=== PATIENT | male | born 1975 | race Caucasian/White ===

== ENCOUNTER 2016-08-07 21:09 | Observation (INO) ==
[2016-08-07 21:46] LABS: Basophils % 0.5 %; Eosinophils # 0.1 K/mcL (0.0-0.6); Eosinophils % 0.8 %; Hematocrit 53.6 % (37.5-50.1); Hemoglobin 18.1 g/dL (12.9-16.9); Immature Granulocytes % 0.2 % (0-4); Lymphocytes # 1.7 K/mcL (0.6-4.6); Lymphocytes % 26.5 %; Mean Corpuscular HGB Conc 33.8 g/dL (31.6-35.5); Mean Corpuscular Hemoglobin 28.4 pg (28.0-33.3); Mean Corpuscular Volume 84.1 fL (83.0-100.0); Mean Platelet Volume 9.6 fL (9.4-12.4); Monocytes # 0.4 K/mcL (0.0-1.3); Monocytes % 6.1 %; Neutrophils # 4.1 K/mcL (1.6-8.9); Platelet Count 260 K/mcL (140-400); Red Blood Count 6.37 M/mcL (4.19-5.50); Red Cell Distribution Width 13.6 % (11.5-14.5); Segmented Neutrophils % 65.9 %
[2016-08-07 21:51] LABS: INR 1.1; Prothrombin Time 12.2 Seconds (9.4-12.1)
[2016-08-07] MEDS ORDERED: GI Cocktail 40 ML EACH PO ONE (21:52)
[2016-08-07 21:54] LABS: Activated Partial Thrombo Time 35.4 Seconds (26.0-36.0)
--- NOTE | 2016-08-07 21:57 | Emergency Department Note ---
Disposition Clinical Impression: Chest pain Qualifiers: Chest pain type: unspecified Qualified Code(s): R07.9 - Chest pain, unspecified Disposition: Admitted As Inpatient Condition: Good Time of Disposition: 23:43 Chest Pain HPI - General Chief Complaint: ED Chest Pain Stated Complaint: Chest Pains Real Bad Time Seen by Provider: 08/07/16 21:46 Source: patient Mode of arrival: ambulatory Limitations: no limitations Vital Signs Reviewed: Yes Nursing Notes Reviewed: Yes - History of Present Illness HPI Narrative: 41-year-old male 41-year-old male presents with abrupt onset epigastric discomfort with associated shortness of breath that began while he was in his vehicle eating [employer] one hour prior to arrival. It was associated with nausea without vomiting. No radiation of symptoms. No lower abdominal pain. He has had similar symptoms in the past which prompted him to come to the emergency department where he had normal troponin testing. He has never had a stress test. He does have family history of late onset coronary artery disease, personal history of hypertension and tobacco abuse. Severity scale (1-10): 10 - Related Data Home Medications Medication Instructions Recorded Confirmed Diazepam [Valium] 10 mg PO DAILY 12/10/14 08/08/16 Testosterone Cypionate 200 mg IM QWEEK 12/10/14 08/08/16 [Depo-Testosterone] Hydrochlorothiazide 25 mg PO DAILY 02/16/15 08/08/16 Insulin Glargine [Lantus] 50 unit SQ HS 07/11/15 08/08/16 Esomeprazole Magnesium [Nexium] 20 mg PO HS 11/25/15 08/08/16 Divalproex Sodium [Depakote] 250 mg PO BID 08/08/16 08/08/16 Previous Rx's Medication Instructions Recorded Lisinopril 10 mg PO DAILY #30 tablet 10/29/15 Sucralfate [Carafate] 1 gm PO QIDAC #56 tablet 03/15/16 Allergies Allergy/AdvReac Type Severity Reaction Status Date / Time aspirin Allergy Hives Verified 08/07/16 21:11 diphenhydramine Allergy Hives Verified 08/07/16 21:11 [From Benadryl] latex Allergy Rash Verified 08/07/16 21:11 All systems ED: reviewed and negative except as stated. Chest Pain PMH - Past Medical History Medical history: Reports: asthma, diabetes, GERD, hyperlipidemia, hypertension, myocardial infarction, seizures, TIA, other Surgical history: Reports: cholecystectomy, vasectomy Psychiatric history: Reports: anxiety, depression, previous psychiatric hospitalization - Social History Smoking Status: Current every day smoker Alcohol use: Reports: none Drug use: Reports: none Physical Exam - Head Head exam: atraumatic, normocephalic, normal inspection - Eye Eye exam: Present: normal appearance, PERRL, EOMI - ENT ENT exam: normal exam, normal oropharynx, mucous membranes moist - Neck Neck exam: Present: normal inspection, full ROM, trachea midline - Chest Chest inspection: Present: normal inspection, symmetric chest wall rise. There is mild tenderness at the inferior aspect of the sternum. - Respiratory Respiratory exam: Clear to auscultation bilaterally without wheezes rales or rhonchi Cardiovascular Cardiovascular exam: Present: regular rate, normal rhythm, normal heart sounds - Abdominal Exam Patient's symptoms are reproducible with palpation at the epigastrium. He states that this is exactly the same symptoms that brought him in for evaluation. Otherwise, the abdomen is nontender. - Extremities Exam Extremities exam: Present: normal inspection, full ROM - Expanded Lower Extremity Exam Hip/Pelvis exam: Present: normal inspection, full ROM - Back Exam Back exam: Present: normal inspection, full ROM. Absent: tenderness, CVA tenderness (R), CVA tenderness (L) - Neurological Exam Neurological exam: Present: alert, oriented X3, CN II-XII intact - Psychiatric Psychiatric exam: Present: normal affect, normal mood - Skin Skin exam: Present: warm, dry, intact, normal color - General Limitations: no limitations General appearance: alert Course - Reevaluation(s) Reevaluation #1: Troponin is negative. Nonischemic EKG. No acute findings on chest x-ray. I offered the patient repeat troponin and home, he did not feel safe with this. He wanted to be admitted for his symptoms. Dr. Delacruz hr receptionist for hospitalist is agreeable to admission. Time: 23:43 Vital Signs Temperature 98.2 F 08/07/16 21:12 Pulse Rate 81 08/07/16 21:12 Respiratory Rate 20 08/07/16 21:12 Blood Pressure 145/99 08/07/16 21:12 O2 Sat by Pulse Oximetry 100 08/07/16 21:12 Temperature 98.0 F 08/08/16 00:43 Pulse Rate 70 08/08/16 00:43 Respiratory Rate 15 08/08/16 00:43 Blood Pressure 116/79 08/08/16 00:43 O2 Sat by Pulse Oximetry 95 08/08/16 00:43 Oxygen Delivery Oxygen Delivery Room Air Chest Pain - Lab Data Result diagrams: 08/07/16 21:39 08/07/16 21:39 Lab Results 08/07/16 08/07/16 08/07/16 Range/Units 21:39 21:39 21:39 WBC 6.2 (4.3-11.1) K/mcL RBC 6.37 H (4.19-5.50) M/mcL Hgb 18.1 H (12.9-16.9) g/dL Hct 53.6 H (37.5-50.1) % MCV 84.1 (83.0-100.0) fL MCH 28.4 (28.0-33.3) pg MCHC 33.8 (31.6-35.5) g/dL RDW 13.6 (11.5-14.5) % Plt Count 260 (140-400) K/mcL MPV 9.6 (9.4-12.4) fL Immature Gran % 0.2 (0-4) % Seg Neutrophils % 65.9 % Lymphocytes % 26.5 % Monocytes % 6.1 % Eosinophils % 0.8 % Basophils % 0.5 % Neutrophils # 4.1 (1.6-8.9) K/mcL Lymphocytes # 1.7 (0.6-4.6) K/mcL Monocytes # 0.4 (0.0-1.3) K/mcL Eosinophils # 0.1 (0.0-0.6) K/mcL Basophils # 0.0 (0.0-0.2) K/mcL PT 12.2 H (9.4-12.1) Seconds INR 1.1 APTT 35.4 (26.0-36.0) Seconds Sodium 140 (136-145) mEq/L Potassium 3.5 (3.5-4.5) mEq/L Chloride 103 (98-109) mEq/L Carbon Dioxide 27 (19-29) mEq/L BUN 7 L (8-26) mg/dL Creatinine 1.00 (0.72-1.25) mg/dL Est GFR ( Amer) > 60 (> 60) Est GFR (Non-Af Amer) > 60 (> 60) BUN/Creatinine Ratio 7 (6-26) Glucose 97 (70-99) mg/dL Calculated Osmolality 288 (280-300) Calcium 9.3 (8.6-10.8) mg/dL Total Bilirubin 1.3 H (0.2-1.2) mg/dL AST 21 (5-34) Units/L ALT 36 (0-55) Units/L Alkaline Phosphatase 54 (38-126) Units/L Troponin I (0-0.03) ng/mL Serum Total Protein 7.3 (6.0-8.3) g/dL Albumin 3.6 (3.5-5.0) g/dL Globulin 3.7 H (2.4-3.5) g/dL Albumin/Globulin Ratio 1.0 L (1.1-2.2) 08/07/16 Range/Units 21:39 WBC (4.3-11.1) K/mcL RBC (4.19-5.50) M/mcL Hgb (12.9-16.9) g/dL Hct (37.5-50.1) % MCV (83.0-100.0) fL MCH (28.0-33.3) pg MCHC (31.6-35.5) g/dL RDW (11.5-14.5) % Plt Count (140-400) K/mcL MPV (9.4-12.4) fL Immature Gran % (0-4) % Seg Neutrophils % % Lymphocytes % % Monocytes % % Eosinophils % % Basophils % % Neutrophils # (1.6-8.9) K/mcL Lymphocytes # (0.6-4.6) K/mcL Monocytes # (0.0-1.3) K/mcL Eosinophils # (0.0-0.6) K/mcL Basophils # (0.0-0.2) K/mcL PT (9.4-12.1) Seconds INR APTT (26.0-36.0) Seconds Sodium (136-145) mEq/L Potassium (3.5-4.5) mEq/L Chloride (98-109) mEq/L Carbon Dioxide (19-29) mEq/L BUN (8-26) mg/dL Creatinine (0.72-1.25) mg/dL Est GFR ( Amer) (> 60) Est GFR (Non-Af Amer) (> 60) BUN/Creatinine Ratio (6-26) Glucose (70-99) mg/dL Calculated Osmolality (280-300) Calcium (8.6-10.8) mg/dL Total Bilirubin (0.2-1.2) mg/dL AST (5-34) Units/L ALT (0-55) Units/L Alkaline Phosphatase (38-126) Units/L Troponin I 0.02 (0-0.03) ng/mL Serum Total Protein (6.0-8.3) g/dL Albumin (3.5-5.0) g/dL Globulin (2.4-3.5) g/dL Albumin/Globulin Ratio (1.1-2.2) - EKG Data EKG results narrative: Normal sinus rhythm at 75 with left axis deviation. No ST elevation or depression. No pathologic Q waves. No ischemic change when compared with 07/04. Attestation Statement - Attestation Attestation: I, Oliverio Guan, examined this patient and my medical decision-making was reviewed with the PMO ANALYST/PA/Advanced Practice Nurse/Resident Physician. I agree with the documented findings, disposition and treatment plan as described except to the extent set forth below. 61-year-old male presents with concerns of chest pain. Patient states his pain started while eating [employer] in his car. He became very short of breath and diaphoretic and had open a window to help himself calm down. Patient states the pain is a pressure in the center of his chest that radiates down his right arm. He does not feels heart racing. No history of cardiac disease per the patient however there is a family history of cardiac disease in multiple family members. Patient is treated for hypertension, hyperlipidemia, diabetes, is a tobacco abuser. Patient had an initial negative troponin and an EKG which showed normal sinus rhythm with a rate of 75 without evidence of STEMI. Patient 's pain did not improve after a GI cocktail. Patient did not feel comfortable to return home he will be admitted to the hospital for further evaluation of chest pain to rule out ACS.
[2016-08-07 22:18] LABS: Alanine Aminotransferase 36 Units/L (0-55); Albumin 3.6 g/dL (3.5-5.0); Alkaline Phosphatase 54 Units/L (38-126); Aspartate Amino Transferase 21 Units/L (5-34); BUN/Creatinine Ratio 7 (6-26); Bilirubin,Total 1.3 mg/dL (0.2-1.2); Blood Urea Nitrogen 7 mg/dL (8-26); Calcium 9.3 mg/dL (8.6-10.8); Carbon Dioxide 27 mEq/L (19-29); Chloride 103 mEq/L (98-109); Globulin 3.7 g/dL (2.4-3.5); Glucose 97 mg/dL (70-99); Osmolality,Calculated 288 (280-300); Potassium 3.5 mEq/L (3.5-4.5); Sodium 140 mEq/L (136-145); Total Protein 7.3 g/dL (6.0-8.3); eGFR For African Americans > 60 (> 60); eGFR For Non-African Americans > 60 (> 60)
[2016-08-07] MEDS ORDERED: Aspirin 81 MG TAB.CHEW PO ONE (22:48)
[2016-08-07] MEDS: Nitroglycerin 0.4 MG TAB.SUBL SL STA ×2 (23:26→23:30)
[2016-08-08] MEDS ORDERED: Nitroglycerin 0.4 MG TAB.SUBL SL PRN (01:00)
[2016-08-08] MEDS ORDERED: Naloxone 0.4 MG/ML INJ IVP PRN (01:03)
[2016-08-08] MEDS ORDERED: Acetaminophen 325 MG TABLET PO PRN (01:03)
[2016-08-08] MEDS ORDERED: *HR* Morphine 2 MG/ML SYRINGE IVP PRN (01:03)
[2016-08-08] MEDS ORDERED: 0.9 % Sodium Chloride 1,000 ML IVC SCH (01:15)
[2016-08-08] MEDS ORDERED: Dextrose Gel 15 GM PO PRN ×2 (02:17)
[2016-08-08] MEDS ORDERED: D5% in Water 1,000 ML IVC PRN (02:17)
[2016-08-08] MEDS ORDERED: *HR* Dextrose 50 % in Water (Syg) 50 ML SYRINGE IVP PRN (02:17)
--- NOTE | 2016-08-08 02:32 | Internal Med History&Physical ---
Date of Encounter: 08/08/16 Time of Encounter: 01:00 Assessment and Plan (1) Chest pain Current visit: Yes Status: Acute Patient has chest pain, responded to nitroglycerin, radiated to right arm, with shortness of breath, nausea and diaphoresis. - Etiology is and determined. - Need to rule out ACS. - We will check 3 sets of troponin. EKG reviewed, unremarkable. - We will keep on continuous cardiac monitoring. - We will give symptomatic treatment. - Chest x-ray unremarkable. - We will check d-dimer, however, patient has no desaturation or tachycardia, PE is less likely. - We will check echocardiogram. - Not place a stress test because patient has frequent chest pain right now. - We will treat patient with Plavix (allergy to aspirin), beta zurdo, atorvastatin, and isosorbide mononitrate at this point unless CAD is ruled out. Qualifiers: Chest pain type: precordial pain Qualified Code(s): R07.2 - Precordial pain (2) Diabetes Current visit: Yes Status: Acute Continue basal and sliding scale insulin. 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 exterminator helper insulin use: with termite exterminator helper use Qualified Code(s): E11.9 - Type 2 diabetes mellitus without complications ; Z79.4 - longterm (current) use of insulin (3) Hypertension Current visit: Yes Status: Acute Continue home medications Qualifiers: Hypertension type: essential hypertension Qualified Code(s): I10 - Essential (primary) hypertension (4) Klinefelter syndrome Current visit: Yes Status: Acute (5) DVT prophylaxis Current visit: Yes Status: Acute [facility] Internal Medicine - H&P: HPI Chief complaint: Chest pain Admitted From: Home Plans for Post Hospital Care: Home History of present illness: Mr. Mills is a 41 year old male with history of diabetes, hypertension, Kleinfelter's syndrome, present to ER for chest pain. Patient said the pain started suddenly at 8:30 PM, sharp and pressure-like, radiates to his right arm. At the same time, patient has shortness of breath, nausea, but no vomiting. He also complained of diaphoresis when he has a pain. The chest pain lasted about 30 minutes and improved after treatment in ER (he was given nitroglycerin in the emergency room). However, patient has several similar episode of pain, relieved by sublingual nitroglycerin. Patient denies fever, cough, sore throat, leg pain or swelling, recent travel. He also complained abdominal pain with diarrhea for 3 days. He has no recent hospitalization or antibiotic use. I discussed CODE STATUS with him. He is a full code. Past Med Surg Social Fam HX - Past Medical History Medical history: asthma, diabetes, GERD, hyperlipidemia, hypertension, myocardial infarction, seizures, TIA, other Psychiatric history: anxiety, depression, previous psychiatric hospitalization - Past Surgical History Surgical History: cholecystectomy, vasectomy - Social History Smoking Status: Current every day smoker Packs per day: 2 Smokeless Tobacco Status: No Alcohol use: none Drug use: none - Family History Father Living Status: Age at : 68 Cause of : [place] Hx Family Cardiac Disorders: Yes Mother Living Status: Hx Family Cardiac Disorders: Yes (pacemaker) Internal Medicine - H&P: Meds RX: Diazepam [Valium] 10 mg PO DAILY 12/10/14 [History] RX: Testosterone Cypionate [Depo-Testosterone] 200 mg IM QWEEK 12/10/14 [History ] RX: Hydrochlorothiazide 25 mg PO DAILY 02/16/15 [History] RX: Insulin Glargine [Lantus] 50 unit SQ HS 07/11/15 [History] RX: Lisinopril 10 mg PO DAILY #30 tablet 10/29/15 [Rx] Esomeprazole Magnesium [Nexium] 20 mg PO HS 11/25/15 [History] Sucralfate [Carafate] 1 gm PO QIDAC #56 tablet 03/15/16 [Rx] Divalproex Sodium [Depakote] 250 mg PO BID 08/08/16 [History] Allergies aspirin Allergy (Verified 08/07/16 21:11) Hives diphenhydramine [From Benadryl] Allergy (Verified 08/07/16 21:11) Hives latex Allergy (Verified 08/07/16 21:11) Rash All Systems PM: A 10-system review of systems was performed and is negative for pertinent findings except as documented above in the HPI. - Constitutional Vitals: Temp Pulse Resp BP Pulse Ox 98.0 F 66 15 101/59 95 08/08/16 00:43 08/08/16 02:11 08/08/16 00:43 08/08/16 02:11 08/08/16 00:43 General appearance: Present: A&O X 3, no acute distress, answers questions appropriately - Head Head exam: Present: atraumatic, normocephalic - Eye Eye exam: Present: PERRL, conjuntiva pink, sclera anicteric Pupils: Present: PERRL - Neck Neck exam general surgery: Present: supple, trachea midline. Absent: lymphadenopathy - Respiratory Respiratory exam: Present: chest wall tenderness, CTAB. Absent: accessory muscle use, rales, rhonchi, wheezes - Cardiovascular Cardiovascular exam: Present: RRR, +S1, +S2. Absent: diastolic murmur, gallop, rubs, systolic murmur - GI/Abdominal GI/Abdominal exam: Present: normal bowel sounds, soft, no peritoneal signs. Absent: distended, tenderness - Extremities Exam Extremities exam: Present: warm, radial pulses palpable and symetrical. Absent : calf tenderness, cyanotic, pedal edema - Neurological Exam Neurological exam: Present: CN II-XII intact, oriented X3, no focal deficits. Absent: pronater drift, facial droop, speech deficit - Skin Skin exam: Present: dry, intact Internal Med - H&P Results - Labs CBC & Chem 7: 08/07/16 21:39 08/07/16 21:39 - EKG Data -: EKG Interpreted by Myself EKG shows normal: sinus rhythm Rate: normal - Impressions ITS Impressions Abdomen/Pelvis CT 08/08/16 01:01 IMPRESSION: 1. No acute findings within the abdomen or pelvis. 2. No nephrolithiasis or hydronephrosis. 3. Normal appendix. D/ / Shahzad Garcia MD / Shahzad Garcia MD Interpreting Provider: Shahzad Garcia MD
[2016-08-08 05:19] LABS: Basophils % 0.3 %; Eosinophils # 0.1 K/mcL (0.0-0.6); Eosinophils % 0.8 %; Hematocrit 53.1 % (37.5-50.1); Hemoglobin 17.6 g/dL (12.9-16.9); Immature Granulocytes % 0.8 % (0-4); Lymphocytes # 1.9 K/mcL (0.6-4.6); Mean Corpuscular HGB Conc 33.1 g/dL (31.6-35.5); Mean Corpuscular Hemoglobin 28.1 pg (28.0-33.3); Mean Corpuscular Volume 84.8 fL (83.0-100.0); Mean Platelet Volume 9.7 fL (9.4-12.4); Monocytes # 0.5 K/mcL (0.0-1.3); Monocytes % 6.2 %; Neutrophils # 4.8 K/mcL (1.6-8.9); Platelet Count 233 K/mcL (140-400); Red Blood Count 6.26 M/mcL (4.19-5.50); Red Cell Distribution Width 13.4 % (11.5-14.5); Segmented Neutrophils % 65.9 %
[2016-08-08 05:33] LABS: BUN/Creatinine Ratio 8 (6-26); Blood Urea Nitrogen 7 mg/dL (8-26); Calcium 8.8 mg/dL (8.6-10.8); Carbon Dioxide 27 mEq/L (19-29); Chloride 104 mEq/L (98-109); Chol/HDL Ratio 5.5 (0-4.9); Cholesterol 115 mg/dL (< 200); Glucose 86 mg/dL (70-99); HDL Cholesterol 21 mg/dL (40-59); LDL Cholesterol,Calculated 69 mg/dL (0-99); Magnesium 1.8 mg/dL (1.6-2.6); Osmolality,Calculated 285 (280-300); Phosphorous 3.1 mg/dL (2.3-4.7); Potassium 3.2 mEq/L (3.5-4.5); Sodium 139 mEq/L (136-145); Triglycerides 126 mg/dL (< 150); eGFR For African Americans > 60 (> 60); eGFR For Non-African Americans > 60 (> 60)
[2016-08-08] MEDS ORDERED: *HR* Enoxaparin 40 MG/0.4 ML SYRINGE SQ SCH (06:00)
[2016-08-08] MEDS ORDERED: diazePAM 10 MG TABLET PO SCH (09:00)
[2016-08-08] MEDS ORDERED: Isosorbide MONOnitrate (24 HR) 30 MG TAB.ER.24H PO SCH (09:00)
[2016-08-08] MEDS ORDERED: hydroCHLOROthiazide 25 MG TABLET PO SCH (09:00)
[2016-08-08] MEDS ORDERED: Divalproex (12 HR) 250 MG TABLET PO SCH (09:00)
--- NOTE | 2016-08-08 09:44 | ECHO - Doppler Report ---
Echocardiogram Name: Can Mills Date of Study: 08/08/2016 Date: 1975 Ht: 74.0 in Medical Record#: [id number] Age: 41 Wt: 190.0 lb Gender: Male BSA: 2.13 Order #: [id number] Location: [facility] Room #: [id number] Reading Physician: Jose Dang MD, [facility] Networking Technician: Keshawn Vann [facility] Ordering Physician: Christen Delacruz MD Primary Physician: Khurram Pace DO Indications: Chest pain Impressions: Normal LV systolic function, LVEF 55-60%. Mild concentric left ventricular hypertrophy. Normal right ventricular size and function. No significant valvular dysfunction. No evidence of pulmonary hypertension. Left Ventricular Wall Motion: Rest Echo Findings All wall segments showed normal motion. Findings: Study Quality * Technically adequate exam. ECG Findings * Sinus bradycardia. Left Ventricle * Normal LV systolic function, LVEF 55-60%. * Normal LV chamber size. * Mild concentric left ventricular hypertrophy. * Normal left ventricular diastolic function. Right Ventricle * Normal right ventricular size and function. Left Atrium * Normal left atrial size. Right Atrium * Normal right atrial size. Aorta * Normally sized aortic root. Pericardium * There is no pericardial effusion present. IVC * Normal IVC dimensions and inspiratory collapse. Mitral Valve * Normal mitral valve structure. * No mitral stenosis. * Trace mitral regurgitation. Tricuspid Valve * Normal tricuspid valve structure. * No tricuspid stenosis. * Trace tricuspid regurgitation. * No evidence of pulmonary hypertension. Pulmonic Valve * Normal pulmonic valve structure. * No pulmonic stenosis. * Trace pulmonic regurgitation. Aortic Valve * Trileaflet aortic valve. * No aortic stenosis. * No aortic regurgitation. History Hypertension Diabetes Hypercholesteremia History of Smoking Years 23 Packs 2 Family History of CAD 11/13/13 a Previous Echo was performed. Measurements: BP: 109/ 70 2D Normal Values RVIDd: 3.04 cm IVSd: 1.30 cm 0.6 - 1.0 cm LVIDd: 4.78 cm 3.7 - 5.6 cm LVPWd: 1.20 cm 0.6 - 1.1 cm LVIDs: 3.12 cm 1.5 - 3.6 cm AO: 3.50 cm < 4.0 cm %FS: 34.70 cm >25 % LA volume: 60 Mitral Valve Peak E:.54 m/sec Peak A:.39 m/sec E/A Ratio:1.4 Tricuspid Valve TV Regurg Peak Grad: 21.00mmHg TV Regurg Peak Ruslan: 2.28m/sec Updated by Jose Dang MD, [facility] on 08/08/2016 9:38:41 AM electronically signed on 08/08/2016 9:39:14 AM with status of Final Wall Motion Arce: 1=Normal, 2=Hypokinesis, 3=Akinesis, 4=Dyskinesis, 5=Aneurysmal, 6=Hyperkinetic, X=Not Visualized (Blank)=Missing
[2016-08-08] MEDS ORDERED: Regadenoson 0.4 MG/5 ML SYRINGE IVP ONE (11:16)
[2016-08-08] MEDS: Sucralfate 1 GM TABLET PO SCH ×3 (11:19→17:34)
[2016-08-08] MEDS: Insulin LISPRO 300 UNITS/3 ML VIAL SQ SCH ×3 (11:32→17:36)
--- NOTE | 2016-08-08 13:58 | Nuclear Medicine Stress Report ---
Regadenoson Nuclear Stress Name: Can Mills Date of Study: 08/08/2016 Date: 1975 Ht: 74.0 in Medical Record#: [id number] Age: 41 Wt: 190.0 lb Gender: Male Order #: [id number] Location: [facility] IP Room: [facility] Supervising Provider: Yolanda Hills CNP Reading Physician: Jose Dang MD, [facility] Ordering Physician: Carrie Hansen CNP Primary Care Physician: Khurram Pace DO Stress Technologist: Nelson Dial CRT [place] Packer: Fernando Menjivar Indications: Chest Pain Impression: No significant ECG changes with regadenoson. Gated LVEF = 64%. Perfusion imaging was negative for ischemia or infarct. History: Hypertension Diabetes Hypercholesteremia History of Smoking Stress Test Summary: Stress Test Type: Pharmacologic Regadenoson 0.4mg/5ml given IV Baseline Information: Initial Heart Rate: 71 Blood Pressure: 112/72 Stress Information: Test Terminated Due to (primary): As per protocol Maximum Blood Pressure: 114/74 Maximum Heart Rate: 108 Percent Maximum Heart Rate Achieved: 60 Double Product: [id number] Symptoms: No chest symptoms Nuclear Summary: SPECT myocardial perfusion imaging using Tc99m Sestamibi given intravenously was performed at rest and following cardiac stress testing. The resting images were obtained following initial dose of 10.3 mCi. Following stress an additional dose of 34.1 mCi was given at peak exercise or 30 seconds post regadenoson infusion. Findings: Stress Note * Resting ECG demonstrated normal sinus rhythm. * No baseline arrhythmias were noted. * Patient had no chest pain during stress. * No arrhythmias were noted during stress. * No significant ECG changes with regadenoson. Hemodynamic responses * Normal hemodynamic responses to pharmacologic stress. Study Quality * Study quality is average. Gated EF % * Gated LVEF = 64%. Left Ventricle * The left ventricle is not dilated. * Normal Segmental Perfusion in rest. * Normal segmental perfusion in stress. * Inferior artifact noted. TID * No evidence of transient ischemic dilatation. Updated by Jose Dang MD, [facility] on 08/08/2016 1:52:33 PM electronically signed on 08/08/2016 1:52:54 PM with status of Final
[2016-08-08 15:55] VITALS: BP 94/53
--- NOTE | 2016-08-08 16:29 | Discharge Summary ---
Date of Encounter: 08/08/16 Time of Encounter: 16:00 - Discharge Diagnosis (1) Chest pain Priority: Primary Status: Acute Comments: Patient reports sudden onset epigastric pain and shortness of breath. He Was he was eating [employer]. He did have nausea no vomiting. No radiation. No abdominal pain and diarrhea. He has had this before and he came to the emergency department. Patient is a smoker and is not interested in smoking cessation materials at this time. Epigastric area slightly tender to palpation. He had a stress test today that showed no significant EKG changes with the medication, gated LVEF 64%, perfusion imaging was negative for ischemia or infarct. Echocardiogram today shows normal systolic function, EF 55-60%, mild left ventricular hypertrophy, no significant valvular dysfunction and no evidence of pulmonary hypertension. Troponins were negative 2. Patient denies chest pain at this time. He has no shortness of breath. Patient sees Dr. Pace at the resident clinic for follow-up. This is most likely reflux symptoms, will start Carafate TID with meals. 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 He works 5 days in a row. He can straight home from work and sleeps for an hour or 2 and is unable to continue sleeping. He says he does take a prescription sleep aid, however, it has not been helping him lately. His father's at bedside and says that he has been getting up and driving to [place] every single day to see his son who is in the hospital. Patient will be given 2 days off work and agrees to go home and try to rest and follow-up with resident clinic. Qualifiers: Insomnia type: other insomnia Qualified Code(s): G47.09 - Other insomnia (3) Diabetes Priority: Secondary Status: Acute Comments: Last A1c was 4.7 in December,. Patient does not take medication at home. Continue lifestyle modifications. Qualifiers: Diabetes mellitus type: type 2 Diabetes mellitus complication status: without complication Diabetes mellitus termination clerk insulin use: with penitentiary use Qualified Code(s): E11.9 - Type 2 diabetes mellitus without complications ; Z79.4 - long-term (current) use of insulin (4) Hypertension Priority: Secondary Status: Chronic Comments: Chronic. Continue medications. Qualifiers: Hypertension type: essential hypertension Qualified Code(s): I10 - Essential (primary) hypertension (5) Klinefelter syndrome Priority: Secondary Status: Chronic (6) DVT prophylaxis Priority: Secondary Status: Acute Comments: Up ad selin - Discharge Medications Prescriptions: Sucralfate [Carafate] 1 gm PO TIDAC #120 tablet Home Medications: Diazepam [Valium] 10 mg PO DAILY 12/10/14 [History] Testosterone Cypionate [Depo-Testosterone] 200 mg IM Q2W 12/10/14 [History] Hydrochlorothiazide 25 mg PO DAILY 02/16/15 [History] Esomeprazole Magnesium [Nexium] 20 mg PO HS 11/25/15 [History] Atorvastatin [Lipitor] 40 mg PO HS 08/08/16 [History] CloNIDine HCl 0.1 mg PO DAILY 08/08/16 [History] Divalproex Sodium [Depakote] 250 mg PO BID 08/08/16 [History] Ibuprofen [Motrin] 800 mg PO Q8HR PRN 08/08/16 [History] Lisinopril [Zestril] 20 mg PO BID 08/08/16 [History] Metoprolol XL (24 HR) Succ [Toprol Xl] 50 mg PO DAILY 08/08/16 [History] Nystatin Cream [Mycostatin Cream] 1 appl TP BID 08/08/16 [History] Sucralfate [Carafate] 1 gm PO TIDAC #120 tablet 08/08/16 [Rx] Tobramycin 1 drop RIGHT EYE DAILY 08/08/16 [History] TraZODone 50 mg PO HS 08/08/16 [History] Allergies/Adverse Reactions: Allergies aspirin Allergy (Verified 08/07/16 21:11) Hives diphenhydramine [From Benadryl] Allergy (Verified 08/07/16 21:11) Hives latex Allergy (Verified 08/07/16 21:11) Rash Procedures/tests Complete & Pending: Procedures Performed prior 72 hours Category Date Time Status CT abd pelvis wo no iv no oral [CT] Stat Cat Scan 08/08/16 01:01 Completed NM gonzalo perf SPECT multi [NM] Routine Exams 08/08/16 08:16 Taken ECG 12 lead ECG [ECG] AM 0600 Y 08/08/16 06:00 Completed EV echocardiogram Routine Y 08/08/16 02:21 Completed SP pharm nuclear stress Routine Y 08/08/16 08:12 Completed Date of admission: 08/07/16 23:53 Primary care physician: Khurram Green Discharging clinician: Hazel Shukla Anticipated date of discharge: 08/08/16 - Patient Status Disposition: Home, Self-Care Functional capacity at discharge: independent ambulation Overall status at discharge: patient is back to baseline - Discharge Instructions Follow Up With: Khurram Pace, [Primary Care Provider] - Additional Instructions: May return to work on 08/09 Return to the ER as needed for any other problems or concerns or if your pain returns. Start Carafate tonight before you eat dinner. Follow up with Dr. Pace in the next week to 10 days for follow up appointment. - Diet and Activity Activity: increase activity as tolerated Diet: diabetic diet, low fat, low cholesterol Interval History: Patient reports sudden onset epigastric pain with nausea last night while eating [employer] in his car prior to going to work. He came to the emergency department for evaluation. He has had these symptoms before and had a negative negative cardiac workup at that time. Epigastric area slightly tender to palpation. He denies chest pain and denies nausea at this time. He also denies shortness of breath, diaphoresis, vomiting, or radiation of pain. This is most likely epigastric in nature, GERD symptoms. He will be started on Carafate 3 times a day with meals and will continue his other home medications. He will follow-up with Dr. Pace at the outpatient resident clinic Patient stress test today. No significant EKG changes with medication, gated LVEF 64%, perfusion imaging was negative for ischemia or infarct. Patient also had echocardiogram that showed normal systolic function, LVEF 25-60 %, mild LV hypertrophy. Normal RV size and function, no significant valvular dysfunction, no evidence of pulmonary hypertension. Troponins were negative 3. EKG was normal sinus with no ischemic changes. He has a strong family history of late onset coronary artery disease and [place]. He has multiple risk factors including diabetes smoking hypertension and obesity. Chest x-ray was negative. He also had a negative abdomen CT. No acute findings within the abdomen or pelvis, no nephrolithiasis or hydronephrosis, and normal appendix. 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 He does not work at 10 PM and gets off at 6:45 AM. He works 5 days a week. He says that he goes home and is in bed by about 7:10 AM. He says that he only sleeps for about an hour to and is up. He does take trazodone 50 mg. It is prescribed by his psychiatrist at [facility]. Patient will be given 2 days off work. I did offer to give him more and he says that he needs to go to work. Labs are within normal limits. Vital signs are within normal limits. Patient denies pain. He is stable and appropriate for discharge. Patient uses a nicotine vaporizer. He says he is not ready to have any smoking cessation information at this time. Hospital course: Mr. Mills is a 41 year old male Time spent discussing smoking cessation with patient: 3 to 10 minutes - Time Spent with Patient Total time spent providing and/or coordinating discharge services: Less than 30 minutes - Constitutional Vitals: Temp Pulse Resp BP Pulse Ox 98.3 F 55 16 94/53 95 08/08/16 15:33 08/08/16 15:33 08/08/16 15:33 08/08/16 15:33 08/08/16 15:33 General appearance: Present: A&O X 3, pleasant, no acute distress, answers questions appropriately - Head Head exam: Present: normal inspection - Eye Eye exam: Present: normal appearance, conjuntiva pink - ENT ENT exam: Present: mucous membranes moist, normal exam - Neck Neck exam general surgery: Present: normal inspection. Absent: lymphadenopathy , tenderness - Respiratory Respiratory exam: Present: CTAB. Absent: rales, rhonchi, stridor, wheezes - Cardiovascular Cardiovascular exam: Present: RRR, +S1, +S2. Absent: diastolic murmur, systolic murmur - GI/Abdominal GI/Abdominal exam: Present: normal bowel sounds, soft, tenderness. Absent: distended, firm, mass - Extremities Exam Extremities exam: Present: normal inspection, warm, radial pulses palpable and symetrical. Absent: pedal edema, tenderness - Neurological Exam Neurological exam: Present: alert, oriented X3, no focal deficits, strengths equal and symetr throughout. Absent: facial droop, speech deficit
--- NOTE | 2016-08-08 16:59 | Electrocardiograph Report ---
[place] [address] Test Date: 2016-08-07 Pat Name: Can Mills Department: 103 Room: 3B39 Gender: M Cath Lab: VU : 1975 Requested By: Oliverio Guan Order Number: [id number] Reading MD: Bri Arias Measurements Intervals [place] Rate: 75 P: 21 NV: 144 QRS: -7 QRSD: 98 T: 66 QT: 352 QTc: 381 Interpretive Statements SINUS RHYTHM MODERATE VOLTAGE CRITERIA FOR LVH, CONSIDER NORMAL VARIANT NONSPECIFIC T-WAVE ABNORMALITY Electronically Signed On 08-08-2016 16:57:18 EDT by Bri Arias
--- NOTE | 2016-08-08 17:07 | Electrocardiograph Report ---
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
[2016-08-08] MEDS ORDERED: Insulin DETEMIR 100 UNIT/ML X5UNITS SQ SCH ×2 (21:00)
[2016-08-08] MEDS ORDERED: Insulin LISPRO 300 UNITS/3 ML VIAL SQ SCH (21:00)
== END 2016-08-08 18:11 | disposition home or self-care (01) ==
LOC: 3BNU 21:09 → EMEROO 21:09 → 3BNU 08-08 00:18
PROVIDERS: ADMIT Internal Medicine; ATTEND Nurse Practitioner Family

== ENCOUNTER 2017-01-12 16:44 | Observation (INO) ==
[2017-01-12 17:55] LABS: Basophils % 0.6 %; Eosinophils # 0.1 K/mcL (0.0-0.6); Hemoglobin 18.2 g/dL (12.9-16.9); Immature Granulocytes % 0.1 % (0-4); Lymphocytes # 1.9 K/mcL (0.6-4.6); Lymphocytes % 26.7 %; Mean Corpuscular Hemoglobin 29.2 pg (28.0-33.3); Mean Corpuscular Volume 88.5 fL (83.0-100.0); Monocytes # 0.4 K/mcL (0.0-1.3); Monocytes % 5.4 %; Neutrophils # 4.6 K/mcL (1.6-8.9); Platelet Count 266 K/mcL (140-400); Red Blood Count 6.24 M/mcL (4.19-5.50); Red Cell Distribution Width 13.6 % (11.5-14.5); Segmented Neutrophils % 66.2 %
[2017-01-12 17:56] LABS: Hematocrit 55.2 % (37.5-50.1)
[2017-01-12 18:08] LABS: BUN/Creatinine Ratio 6 (6-26); Blood Urea Nitrogen 6 mg/dL (8-26); Calcium 9.7 mg/dL (8.6-10.8); Carbon Dioxide 25 mEq/L (19-29); Chloride 104 mEq/L (98-109); Glucose 83 mg/dL (70-99); Osmolality,Calculated 285 (280-300); Potassium 4.1 mEq/L (3.5-4.5); Sodium 139 mEq/L (136-145); eGFR For African Americans > 60 (> 60); eGFR For Non-African Americans > 60 (> 60)
--- NOTE | 2017-01-12 19:00 | Emergency Department Note ---
Disposition Clinical Impression: Chest pain Disposition: Admitted As Inpatient Condition: Good General Adult HPI - General Chief complaint: ED Chest Pain Stated complaint: chest pain, cold sweat Time Seen by Provider: 01/12/17 18:58 Source: patient Limitations: no limitations - History of Present Illness Pain Scale: 10 - Related Data Home Medications Medication Instructions Recorded Confirmed Diazepam [Valium] 10 mg PO DAILY 12/10/14 01/12/17 Testosterone Cypionate 200 mg IM QWEEK 12/10/14 01/12/17 [Depo-Testosterone] Atorvastatin [Lipitor] 40 mg PO HS 08/08/16 01/12/17 traZODone [TraZODone] 50 mg PO HS 08/08/16 01/12/17 Sertraline [Zoloft] 100 mg PO DAILY 10/01/16 01/12/17 Previous Rx's Medication Instructions Recorded Hydrochlorothiazide [Microzide] 12.5 mg PO DAILY #10 capsule 09/08/16 Lisinopril [Zestril] 20 mg PO DAILY #10 tablet 09/08/16 Divalproex Sodium [Depakote] 250 mg PO BID #14 tablet.dr 11/20/16 Metoprolol XL (24 HR) Succ [Toprol 50 mg PO DAILY #7 tab.er.24h 11/20/16 Xl] Allergies Allergy/AdvReac Type Severity Reaction Status Date / Time diphenhydramine Allergy Hives Verified 09/07/16 22:53 [From Benadryl] latex Allergy Rash Verified 09/07/16 22:53 Past Medical History - Past Medical History Medical history: Reports: asthma, diabetes, GERD, hyperlipidemia, hypertension, myocardial infarction, seizures, TIA, other Surgical history: Reports: cholecystectomy, vasectomy Psychiatric history: Reports: anxiety, depression, previous psychiatric hospitalization - Social History Smoking Status: Current every day smoker Smokeless Tobacco Status: No Alcohol use: Reports: none Drug use: Reports: none Physical Exam - General Limitations: no limitations General appearance: alert, in no apparent distress Course Vital Signs Temperature 98.2 F 01/12/17 17:07 Pulse Rate 83 01/12/17 17:07 Respiratory Rate 18 01/12/17 17:07 Blood Pressure 152/109 01/12/17 17:07 O2 Sat by Pulse Oximetry 97 01/12/17 17:07 Temperature 97.6 F 01/13/17 07:04 Pulse Rate 68 01/13/17 07:04 Respiratory Rate 20 01/13/17 07:04 Blood Pressure 125/81 01/13/17 07:04 O2 Sat by Pulse Oximetry 96 01/13/17 07:04 Oxygen Delivery Oxygen Delivery Room Air Medical Decision Making - Lab Data Result diagrams: 01/13/17 03:24 01/13/17 03:24 Lab Results 01/12/17 01/12/17 01/12/17 Range/Units 17:45 17:45 17:45 WBC 7.0 (4.3-11.1) K/mcL RBC 6.24 H (4.19-5.50) M/mcL Hgb 18.2 H (12.9-16.9) g/dL Hct 55.2 H (37.5-50.1) % MCV 88.5 (83.0-100.0) fL MCH 29.2 (28.0-33.3) pg MCHC 33.0 (31.6-35.5) g/dL RDW 13.6 (11.5-14.5) % Plt Count 266 (140-400) K/mcL MPV 9.0 L (9.4-12.4) fL Immature Gran % 0.1 (0-4) % Seg Neutrophils % 66.2 % Lymphocytes % 26.7 % Monocytes % 5.4 % Eosinophils % 1.0 % Basophils % 0.6 % Neutrophils # 4.6 (1.6-8.9) K/mcL Lymphocytes # 1.9 (0.6-4.6) K/mcL Monocytes # 0.4 (0.0-1.3) K/mcL Eosinophils # 0.1 (0.0-0.6) K/mcL Basophils # 0.0 (0.0-0.2) K/mcL PT (9.4-12.1) Seconds INR APTT (26.0-36.0) Seconds Sodium 139 (136-145) mEq/L Potassium 4.1 (3.5-4.5) mEq/L Chloride 104 (98-109) mEq/L Carbon Dioxide 25 (19-29) mEq/L BUN 6 L (8-26) mg/dL Creatinine 1.03 (0.72-1.25) mg/dL Est GFR ( Amer) > 60 (> 60) Est GFR (Non-Af Amer) > 60 (> 60) BUN/Creatinine Ratio 6 (6-26) Glucose 83 (70-99) mg/dL Calculated Osmolality 285 (280-300) Calcium 9.7 (8.6-10.8) mg/dL Troponin I 0.00 (0-0.03) ng/mL 01/12/17 Range/Units 18:41 WBC (4.3-11.1) K/mcL RBC (4.19-5.50) M/mcL Hgb (12.9-16.9) g/dL Hct (37.5-50.1) % MCV (83.0-100.0) fL MCH (28.0-33.3) pg MCHC (31.6-35.5) g/dL RDW (11.5-14.5) % Plt Count (140-400) K/mcL MPV (9.4-12.4) fL Immature Gran % (0-4) % Seg Neutrophils % % Lymphocytes % % Monocytes % % Eosinophils % % Basophils % % Neutrophils # (1.6-8.9) K/mcL Lymphocytes # (0.6-4.6) K/mcL Monocytes # (0.0-1.3) K/mcL Eosinophils # (0.0-0.6) K/mcL Basophils # (0.0-0.2) K/mcL PT 10.9 (9.4-12.1) Seconds INR 1.0 APTT 31.7 (26.0-36.0) Seconds Sodium (136-145) mEq/L Potassium (3.5-4.5) mEq/L Chloride (98-109) mEq/L Carbon Dioxide (19-29) mEq/L BUN (8-26) mg/dL Creatinine (0.72-1.25) mg/dL Est GFR ( Amer) (> 60) Est GFR (Non-Af Amer) (> 60) BUN/Creatinine Ratio (6-26) Glucose (70-99) mg/dL Calculated Osmolality (280-300) Calcium (8.6-10.8) mg/dL Troponin I (0-0.03) ng/mL Attestation Statement - Attestation Attestation: I examined this patient and my medical decision-making was reviewed with the Resident Physician. I agree with the documented findings, disposition and treatment plan as described except to the extent set forth below. Face to face time provided in conjunction with the resident physician Dr. Parikh Patient complains of hot sweats and cold chills, CP. H/o tobacco use, HTN, DM. He appears in no acute distress on exam. EKG reviewed by me. Labs ordered by triage reviewed by me
[2017-01-12 19:07] LABS: Prothrombin Time 10.9 Seconds (9.4-12.1)
[2017-01-12] MEDS ORDERED: Aspirin 325 MG TABLET PO ONE (19:08)
[2017-01-12 19:10] LABS: Activated Partial Thrombo Time 31.7 Seconds (26.0-36.0)
--- NOTE | 2017-01-12 19:10 | Emergency Department Note ---
Disposition Clinical Impression: Chest pain Qualifiers: Chest pain type: unspecified Qualified Code(s): R07.9 - Chest pain, unspecified Disposition: Admitted As Inpatient Condition: Good Referrals: NONE,PCP [Non-Partnered Physician] - Forms: ED Satisfaction Letter Time of Disposition: 19:38 Chest Pain HPI - General Chief Complaint: ED Chest Pain Stated Complaint: chest pain, cold sweat Time Seen by Provider: 01/12/17 18:58 Source: patient Limitations: no limitations Vital Signs Reviewed: Yes Nursing Notes Reviewed: Yes - History of Present Illness HPI Narrative: 41-year-old male presents to the emergency department with a chief complaint of having chest pressure over the last 5 days. Patient states that the reason he came into the emergency department is that it worsened last night. He states that he has been diaphoretic, having some nausea, never felt like this before. Patient has a history of Klinefelter's, hypertension, hyperlipidemia, diabetes, mother and father both have had heart attacks. Severity scale (1-10): 10 - Related Data Home Medications Medication Instructions Recorded Confirmed Diazepam [Valium] 10 mg PO DAILY 12/10/14 12/06/16 Testosterone Cypionate 200 mg IM Q2W 12/10/14 12/06/16 [Depo-Testosterone] Atorvastatin [Lipitor] 40 mg PO HS 08/08/16 12/06/16 cloNIDine HCl [CloNIDine HCl] 0.1 mg PO DAILY 08/08/16 12/06/16 traZODone [TraZODone] 50 mg PO HS 08/08/16 12/06/16 Sertraline 100 mg PO DAILY 10/01/16 12/06/16 Previous Rx's Medication Instructions Recorded Hydrochlorothiazide [Microzide] 12.5 mg PO DAILY #10 capsule 09/08/16 Lisinopril [Zestril] 20 mg PO DAILY #10 tablet 09/08/16 Naproxen [Naprosyn] 500 mg PO BID #20 tablet 10/01/16 Divalproex Sodium [Depakote] 250 mg PO BID #14 tablet.dr 11/20/16 Metoprolol XL (24 HR) Succ [Toprol 50 mg PO DAILY #7 tab.er.24h 11/20/16 Xl] Allergies Allergy/AdvReac Type Severity Reaction Status Date / Time aspirin Allergy Hives Verified 09/07/16 22:53 diphenhydramine Allergy Hives Verified 09/07/16 22:53 [From Benadryl] latex Allergy Rash Verified 09/07/16 22:53 All systems ED: reviewed and negative except as stated. Review of Systems: As Per HPI Constitutional: Denies: fever, chills Eyes: Denies: eye pain ENT ED: Denies: ear pain Cardiovascular: Reports: chest pain Respiratory: Reports: dyspnea. Denies: cough Gastrointestinal: Reports: nausea. Denies: abdominal pain, vomiting Genitourinary: Denies: urgency, dysuria Musculoskeletal: Denies: back pain, neck pain Neurological: Denies: headache Psychiatric: Denies: anxiety Chest Pain PMH - Past Medical History Medical history: Reports: asthma, diabetes, GERD, hyperlipidemia, hypertension, myocardial infarction, seizures, TIA, other Surgical history: Reports: cholecystectomy, vasectomy Psychiatric history: Reports: anxiety, depression, previous psychiatric hospitalization - Social History Smoking Status: Current every day smoker Alcohol use: Reports: none Drug use: Reports: none Physical Exam - General Limitations: no limitations General appearance: alert, in no apparent distress - Head Head exam: normocephalic - Eye Eye exam: Absent: scleral icterus, conjunctival injection - ENT ENT exam: normal oropharynx, mucous membranes moist - Neck Neck exam: Present: trachea midline. Absent: tenderness, meningismus - Chest Chest inspection: Present: symmetric chest wall rise - Respiratory Respiratory exam: Present: wheezes. Absent: respiratory distress, accessory muscle use - Cardiovascular Cardiovascular exam: Present: regular rate, normal rhythm, normal heart sounds - Abdominal Exam Abdominal exam: Present: soft, Non-Tender. Absent: distention, guarding, rebound, rigidity - Extremities Exam Extremities exam: Present: normal capillary refill. Absent: tenderness - Back Exam Back exam: Present: full ROM - Neurological Exam Neurological exam: Present: alert, oriented X3 - Psychiatric Psychiatric exam: Present: normal affect, normal mood - Skin Skin exam: Present: warm, dry, intact Course Course Narrative: 41-year-old male presents to the emergency department with a five-day history of chest pressure that has worsened since last night. Biggest concern is for acute coronary syndrome. The patient does not appear to be in any distress, but he is complaining of having chest pressure. Electrocardiogram does not show any ST elevations. However, there is a nonspecific T-wave inversion in aVL. We will obtain a chest x-ray, troponin, and give this patient presented by milligrams aspirin. The patient has a side effect of diaphoresis with aspirin. I stated that the benefit will outweigh the risks of his side effect patient currently hemodynamically stable at this time. This patient has a heart score of 4, and wants to stay in the hospital for further evaluation of his chest pain. I will Vital Signs Temperature 98.2 F 01/12/17 17:07 Pulse Rate 83 01/12/17 17:07 Respiratory Rate 18 01/12/17 17:07 Blood Pressure 152/109 01/12/17 17:07 O2 Sat by Pulse Oximetry 97 01/12/17 17:07 Temperature 98.2 F 01/12/17 17:07 Pulse Rate 83 01/12/17 17:07 Respiratory Rate 18 01/12/17 17:07 Blood Pressure 152/109 01/12/17 17:07 O2 Sat by Pulse Oximetry 97 01/12/17 17:07 Oxygen Delivery Oxygen Delivery Room Air Vital Signs Temperature 98.2 F 01/12/17 17:07 Pulse Rate 83 01/12/17 17:07 Respiratory Rate 18 01/12/17 17:07 Blood Pressure 152/109 01/12/17 17:07 O2 Sat by Pulse Oximetry 97 01/12/17 17:07 Temperature 98.2 F 01/12/17 17:07 Pulse Rate 83 01/12/17 17:07 Respiratory Rate 18 01/12/17 17:07 Blood Pressure 152/109 01/12/17 17:07 O2 Sat by Pulse Oximetry 97 01/12/17 17:07 Oxygen Delivery Oxygen Delivery Room Air Chest Pain - Medical Records Medical records reviewed: Yes I reviewed the patient's medical records. - Lab Data Lab results reviewed: Yes I reviewed the patient's lab results. Result diagrams: 01/12/17 17:45 01/12/17 17:45 Lab Results 01/12/17 01/12/17 01/12/17 Range/Units 17:45 17:45 17:45 WBC 7.0 (4.3-11.1) K/mcL RBC 6.24 H (4.19-5.50) M/mcL Hgb 18.2 H (12.9-16.9) g/dL Hct 55.2 H (37.5-50.1) % MCV 88.5 (83.0-100.0) fL MCH 29.2 (28.0-33.3) pg MCHC 33.0 (31.6-35.5) g/dL RDW 13.6 (11.5-14.5) % Plt Count 266 (140-400) K/mcL MPV 9.0 L (9.4-12.4) fL Immature Gran % 0.1 (0-4) % Seg Neutrophils % 66.2 % Lymphocytes % 26.7 % Monocytes % 5.4 % Eosinophils % 1.0 % Basophils % 0.6 % Neutrophils # 4.6 (1.6-8.9) K/mcL Lymphocytes # 1.9 (0.6-4.6) K/mcL Monocytes # 0.4 (0.0-1.3) K/mcL Eosinophils # 0.1 (0.0-0.6) K/mcL Basophils # 0.0 (0.0-0.2) K/mcL Sodium 139 (136-145) mEq/L Potassium 4.1 (3.5-4.5) mEq/L Chloride 104 (98-109) mEq/L Carbon Dioxide 25 (19-29) mEq/L BUN 6 L (8-26) mg/dL Creatinine 1.03 (0.72-1.25) mg/dL Est GFR ( Amer) > 60 (> 60) Est GFR (Non-Af Amer) > 60 (> 60) BUN/Creatinine Ratio 6 (6-26) Glucose 83 (70-99) mg/dL Calculated Osmolality 285 (280-300) Calcium 9.7 (8.6-10.8) mg/dL Troponin I 0.00 (0-0.03) ng/mL - Radiology Data Radiology results reviewed: Yes I reviewed the patient's radiology results. - EKG Data EKG attestation: Yes I reviewed and interpreted this EKG. EKG results narrative: 17:02 Ventricular rate 85 bpm, CA interval 166 ms, QRS duration 92 ms, QT 357 ms, QTC 399 ms, normal axis. Sinus rhythm with a ventricular rate of 85 bpm. Left ventricular hypertrophy. There is a nonspecific T-wave inversion in lead aVL that is new from her previous electrocardiogram performed on October 262016. There are no ST elevations noted. Heart Score - Score History: Slightly Suspicious EKG: Non Specific repolarisation Disturbance Age: 45-65 Risk Factors: Equal/Greater than 3 risk factor or history of atherosclerotic disease Troponin: Less than normal limit HEART Score Total: 4
--- NOTE | 2017-01-12 19:48 | Internal Med History&Physical ---
<Kj Monzon - Last Filed: 01/13/17 02:15> Date of Encounter: 01/12/17 Time of Encounter: 19:48 Assessment and Plan (1) Chest pain Current visit: Yes Status: Acute KENZIE score 2 (HTN, HLD, family h/o CAD, tobacco dependence) Left sided CP at rest relieved by NTG, worse with taking deep breath ASA 325 mg given in ED Continue NTG and Morphine prn CP Trend serial troponins Echo 08/08/16 revealed Normal LV systolic function, LVEF 55-60%, Mild concentric left ventricular hypertrophy. Nuclear stress test 08/08/16 was negative for infarct or ischemia. NPO after MN for stress test in AM Resume Beta-zurdo after stress test If unable to perform, consider outpatient stress test Qualifiers: Chest pain type: chest pain on breathing Qualified Code(s): R07.1 - Chest pain on breathing; R07.81 - Pleurodynia (2) GERD (gastroesophageal reflux disease) Current visit: Yes Status: Acute Pepcid IV BID Zofran prn Qualifiers: Esophagitis presence: esophagitis presence not specified Qualified Code(s) : K21.9 - Gastro-esophageal reflux disease without esophagitis (3) Hypertension Current visit: No Status: Chronic Continue home meds Qualifiers: Hypertension type: essential hypertension Qualified Code(s): I10 - Essential (primary) hypertension (4) HLD (hyperlipidemia) Current visit: Yes Status: Chronic Continue home meds Qualifiers: Hyperlipidemia type: unspecified Qualified Code(s): E78.5 - Hyperlipidemia , unspecified (5) History of TIA (transient ischemic attack) Current visit: Yes Status: Chronic Continue home meds (6) Seizure disorder Current visit: Yes Status: Chronic Continue home meds (7) Asthma Current visit: Yes Status: Chronic Continue home meds Qualifiers: Asthma severity: unspecified severity Asthma persistence: unspecified Asthma complication type: unspecified Qualified Code(s): J45.909 - Unspecified asthma, uncomplicated (8) Tobacco dependence Current visit: Yes Status: Chronic Tobacco cessation discussed Hold Nicotine products prior to stress test (9) DVT prophylaxis Current visit: No Status: Acute Heparin subq TID Internal Medicine - H&P: HPI Chief complaint: CP Admitted From: Home Plans for Post Hospital Care: Home History of present illness: Mr. Mills is a 41 year old male with a PMH of DM type 2, GERD, hypertension, hyperlipidemia, seizures, TIA, and tobacco dependence who presented c/o sharp left sided CP and SOB for the past 3 days. CP waxes and wanes from 8/10 to 10/ 10 in severity and was improved after NTG in the ED. Pain occurs at rest, radiates to his left shoulder/left arm, and is worsened with deep breathing. Patient reports concurrent nausea, chills, and sore throat. He reports symptoms today are different than his usual GERD symptoms. Nuclear stress test 08/08/16 was negative for infarct or ischemia. Patient denies fever, palpitations, cough, sinus congestion, abd pain, vomiting , diarrhea, constipation, leg edema, or diaphoresis. He reports his father form an RI at age 68 and mother had an AICD. Friend is at bedside. Past Med Surg Social Fam HX - Past Medical History Medical history: asthma, diabetes, GERD, hyperlipidemia, hypertension, myocardial infarction, seizures, TIA, other Psychiatric history: anxiety, depression, previous psychiatric hospitalization - Past Surgical History Surgical History: cholecystectomy, orthopedic, other (right foot), vasectomy - Social History Smoking Status: Current every day smoker Smokeless Tobacco Status: No Alcohol use: none Drug use: none - Family History Father Living Status: Age at : 68 Cause of : RI Hx Family Cardiac Disorders: Yes (CAD) Mother Living Status: Hx Family Cardiac Disorders: Yes (pacemaker) Internal Medicine - H&P: Meds Diazepam [Valium] 10 mg PO DAILY 12/10/14 [History] Testosterone Cypionate [Depo-Testosterone] 200 mg IM QWEEK 12/10/14 [History] Atorvastatin [Lipitor] 40 mg PO HS 08/08/16 [History] traZODone [TraZODone] 50 mg PO HS 08/08/16 [History] Hydrochlorothiazide [Microzide] 12.5 mg PO DAILY #10 capsule 09/08/16 [Rx] Lisinopril [Zestril] 20 mg PO DAILY #10 tablet 09/08/16 [Rx] Sertraline [Zoloft] 100 mg PO DAILY 10/01/16 [History] Divalproex Sodium [Depakote] 250 mg PO BID #14 latrell. 11/20/16 [Rx] Metoprolol XL (24 HR) Succ [Toprol Xl] 50 mg PO DAILY #7 tab.er.24h 11/20/16 [Rx ] 3 Allergy/AdvReac Type Severity Reaction Status Date / Time diphenhydramine Allergy Hives Verified 09/07/16 22:53 [From Benadryl] latex Allergy Rash Verified 09/07/16 22:53 All Systems PM: A 10-system review of systems was performed and is negative for pertinent findings except as documented above in the HPI. - Constitutional Constitutional: chills, no fatigue, no fever(s), no falls, no weight gain, no weight loss - EENT Eyes: no change in vision Nose, mouth and throat: sore throat, no nasal congestion - Cardiovascular Cardiovascular ROS IM: chest pain, dyspnea, no palpitations - Respiratory Respiratory: dyspnea, no cough, no chest congestion, no excessive phlegm production - Gastrointestinal Gastrointestinal: heartburn, nausea, no abdominal pain, no diarrhea, no vomiting - Genitourinary Genitourinary ROS male: no dysuria, no urinary frequency, no urinary urgency - Musculoskeletal Musculoskeletal ROS IM: myalgias, no back pain, no numbness, no tingling - Integumentary Integumentary IM: no erythema, no rash, no skin ulcer - Neurological Neurological ROS: tingling, no confusion, no numbness - Psychiatric Psychiatric: anxiety, no depression - Endocrine Endocrine IM: no polydipsia, no polyphagia, no polyuria - Constitutional Vitals: Temp Pulse Resp BP Pulse Ox 98.2 F 83 18 152/109 97 01/12/17 17:07 01/12/17 17:07 01/12/17 17:07 01/12/17 17:07 01/12/17 17:07 General appearance: Present: cooperative, mild distress, A&O X 3, answers questions appropriately Exam: appears older than stated age - Head Head exam: Present: atraumatic, normal inspection, normocephalic - Eye Eye exam: Present: EOMI, PERRL - ENT ENT exam: Present: mucous membranes moist, normal oropharynx - Neck Neck exam general surgery: Present: normal inspection, supple. Absent: lymphadenopathy, tenderness - Respiratory Respiratory exam: Present: CTAB. Absent: accessory muscle use, decreased breath sounds, respiratory distress, wheezes - Cardiovascular Cardiovascular exam: Present: RRR, +S1, +S2 Additional comments: mild chest wall tenderness to palpation in T-spine - GI/Abdominal GI/Abdominal exam: Present: normal bowel sounds, tenderness (LUQ). Absent: distended, guarding, rigid - Extremities Exam Extremities exam: Present: normal inspection, warm. Absent: pedal edema Additional comments: mild chest wall tenderness to palpation in T-spine - Back Exam Back exam: Present: normal inspection, paraspinal tenderness (mild chest wall tenderness to palpation in T-spine), tenderness - Neurological Exam Neurological exam: Present: alert, oriented X3, no focal deficits. Absent: altered, speech deficit - Psychiatric Psychiatric exam: Present: anxious, normal affect - Skin Skin exam: Present: dry, intact, warm Internal Med - H&P Results - Labs CBC & Chem 7: 01/12/17 17:45 01/12/17 17:45 Labs: Short CBC 01/12/17 Range/Units 17:45 WBC 7.0 (4.3-11.1) K/mcL Hgb 18.2 H (12.9-16.9) g/dL Hct 55.2 H (37.5-50.1) % Plt Count 266 (140-400) K/mcL Neutrophils # 4.6 (1.6-8.9) K/mcL BMP 01/12/17 17:45 Sodium 139 Potassium 4.1 Chloride 104 Carbon Dioxide 25 BUN 6 L Creatinine 1.03 Glucose 83 Calcium 9.7 Cardiac Enzymes 01/12/17 Range/Units 17:45 Troponin I 0.00 (0-0.03) ng/mL - EKG Data -: EKG Interpreted by Myself EKG shows normal: sinus rhythm ( Left ventricular hypertrophy. There is a nonspecific T-wave inversion in lead aVL that is new from her previous electrocardiogram performed on October 262016. There are no ST elevations), axis, intervals, QRS complexes, ST-T waves (NSR HR 85, TX interval 166 ms, QRS duration 92 ms, QT 357 ms, QTC 399 ms, normal axis.) - EKG Data Prior EKG available for review: yes When compared to previous EKG: there are significant changes - Impressions ITS Impressions Chest X-Ray 01/12/17 17:09 IMPRESSION: No radiographic evidence for acute cardiopulmonary disease process. D/ / Ferny Beatty / Ferny Beatty Interpreting Provider: Ferny Beatty <Sylvie Ann - Last Filed: 01/13/17 03:38> Date of Encounter: 01/12/17 Internal Medicine - H&P: HPI History of present illness: Mr. Mills is a 41 year old male All Systems PM: A 10-system review of systems was performed and is negative for pertinent findings except as documented above in the HPI. - Constitutional Vitals: Temp Pulse Resp BP Pulse Ox 97.4 F L 51 14 120/71 97 01/12/17 23:30 01/12/17 23:30 01/12/17 23:30 01/12/17 23:30 01/12/17 23:30 Internal Med - H&P Results - Labs CBC & Chem 7: 01/12/17 17:45 01/12/17 17:45 Labs: Cardiac Enzymes 01/12/17 Range/Units 21:47 Troponin I 0.01 (0-0.03) ng/mL - Attending Attestation Patient seen and examined independently and personally and plan discussed with the resident. Patient has history of hypertension diabetes and dyslipidemia and a positive family history for coronary artery disease came in with atypical chest pain which is apparently going on for 7 days now. EKGs show some T-wave inversions however it is not known if this is an acute change. Apparently nitroglycerin was given in ER and that did not help. Considering his young age he seems to have low pretest probability however considering his risk factors he probably is a borderline case for stress stress and hospital which is scheduled for the morning. Highly doubt if his serial cardiac enzymes returned positive. He is already on low-dose aspirin and beta zurdo.
[2017-01-12] MEDS: Nitroglycerin 0.4 MG TAB.SUBL SL PRN (20:15)
[2017-01-12] MEDS ORDERED: Ondansetron 4 MG/2 ML VIAL IVP PRN (21:26)
[2017-01-12] MEDS: Divalproex (12 HR) 250 MG TABLET PO SCH (21:53)
[2017-01-12] MEDS: *HR* Morphine 2 MG/ML SYRINGE IVP PRN (21:54)
[2017-01-12] MEDS: *HR* Heparin 5,000 UNIT/ML VIAL SQ SCH (21:59)
[2017-01-12] MEDS: traZODone 50 MG TABLET PO SCH (22:38)
[2017-01-13 04:15] LABS: Basophils % 0.5 %; Eosinophils # 0.1 K/mcL (0.0-0.6); Eosinophils % 1.5 %; Hematocrit 50.9 % (37.5-50.1); Immature Granulocytes % 0.2 % (0-4); Lymphocytes # 2.1 K/mcL (0.6-4.6); Lymphocytes % 32.8 %; Mean Corpuscular HGB Conc 33.4 g/dL (31.6-35.5); Mean Corpuscular Hemoglobin 29.3 pg (28.0-33.3); Mean Corpuscular Volume 87.6 fL (83.0-100.0); Mean Platelet Volume 9.3 fL (9.4-12.4); Monocytes # 0.4 K/mcL (0.0-1.3); Monocytes % 6.6 %; Neutrophils # 3.8 K/mcL (1.6-8.9); Platelet Count 242 K/mcL (140-400); Red Blood Count 5.81 M/mcL (4.19-5.50); Red Cell Distribution Width 13.8 % (11.5-14.5); Segmented Neutrophils % 58.4 %
[2017-01-13 04:23] LABS: Alanine Aminotransferase 14 Units/L (0-55); Albumin 2.9 g/dL (3.5-5.0); Albumin/Globulin Ratio 0.9 (1.1-2.2); Alkaline Phosphatase 73 Units/L (38-126); Aspartate Amino Transferase 12 Units/L (5-34); BUN/Creatinine Ratio 9 (6-26); Bilirubin,Total 0.5 mg/dL (0.2-1.2); Blood Urea Nitrogen 9 mg/dL (8-26); Calcium 9.1 mg/dL (8.6-10.8); Carbon Dioxide 28 mEq/L (19-29); Chloride 106 mEq/L (98-109); Globulin 3.3 g/dL (2.4-3.5); Glucose 87 mg/dL (70-99); Osmolality,Calculated 286 (280-300); Sodium 139 mEq/L (136-145); Total Protein 6.2 g/dL (6.0-8.3); eGFR For African Americans > 60 (> 60); eGFR For Non-African Americans > 60 (> 60)
[2017-01-13] MEDS: Famotidine 20 MG/2 ML VIAL IVP SCH ×2 (05:34→17:44)
[2017-01-13] MEDS: *HR* Heparin 5,000 UNIT/ML VIAL SQ SCH ×3 (05:34→22:11)
[2017-01-13] MEDS ORDERED: Regadenoson 0.4 MG/5 ML SYRINGE IVP ONE (06:30)
[2017-01-13] MEDS: *HR* Morphine 2 MG/ML SYRINGE IVP PRN (08:43)
[2017-01-13] MEDS: Divalproex (12 HR) 250 MG TABLET PO SCH ×2 (09:16→22:11)
[2017-01-13] MEDS: hydroCHLOROthiazide 25 MG TABLET PO SCH (09:16)
[2017-01-13] MEDS: diazePAM 10 MG TABLET PO SCH (09:18)
[2017-01-13] MEDS: Aspirin 81 MG TAB.CHEW PO SCH (09:18)
[2017-01-13] MEDS: Lisinopril 20 MG TABLET PO SCH (09:18)
[2017-01-13] MEDS ORDERED: Acetaminophen 325 MG TABLET PO ONE (17:30)
[2017-01-13] MEDS ORDERED: GI Cocktail 40 ML EACH PO ONE (20:02)
--- NOTE | 2017-01-13 20:05 | Internal Med Progress Note ---
Date of Encounter: 01/13/17 Time of Encounter: 14:45 - Assessment and plan (1) Chest pain Current Visit: Yes Status: Acute Assessment and plan: Patient reports 3 day history of midsternal chest pain with radiation to his left arm. Onset while lying down and watch TV 3 nights ago. Patient reports it feels better although it still hurts and feels heaviness chest. The pain does change with movement and deep breathing. He denies any relation to food and the pain. The pain is also reproducible in epigastric area with palpation. He denies nausea, vomiting, diaphoresis, diarrhea, or shortness of breath. Patient's chest x-ray was negative. Troponins are negative 3. She has a negative stress test in Jul, 2016. At the same time, in Jul, 2016 patient also had an echocardiogram that showed an LVEF of 55-60% with normal LV systolic function, mild concentric LV hypertrophy and no significant valvular dysfunction , and all wall segments showed normal motion. The pain is not concerning at this time for ACS. Is more concerning for patient 's GERD symptoms or ulcer disease. Continue to monitor telemetry Patient was given a GI cocktail, will assess for effectiveness. Qualifiers: Chest pain type: chest pain on breathing Qualified Code(s): R07.1 - Chest pain on breathing; R07.81 - Pleurodynia (2) Hypertension Current Visit: Yes Status: Chronic Assessment and plan: Omi. Continue medications. Qualifiers: Hypertension type: essential hypertension Qualified Code(s): I10 - Essential (primary) hypertension (3) DVT prophylaxis Current Visit: No Status: Acute Assessment and plan: Heparin subcutaneous daily. Patient is ambulatory in the room. (4) Seizure disorder Current Visit: Yes Status: Chronic Assessment and plan: Chronic. Seizure precautions in place. Continue medications. (5) GERD (gastroesophageal reflux disease) Current Visit: Yes Status: Acute Assessment and plan: Chronic. Patient has been given a GI cocktail. He is getting Pepcid 20 mg IV twice a day. Will also try Carafate. Qualifiers: Esophagitis presence: esophagitis presence not specified Qualified Code(s) : K21.9 - Gastro-esophageal reflux disease without esophagitis (6) Asthma Current Visit: Yes Status: Chronic Assessment and plan: No acute exacerbation. Continue home medications. Patient is not requiring supplemental oxygen at this time. Lungs are clear, no wheezing, rales, rhonchi , stridor or respiratory distress. Qualifiers: Asthma severity: unspecified severity Asthma persistence: unspecified Asthma complication type: unspecified Qualified Code(s): J45.909 - Unspecified asthma, uncomplicated (7) Tobacco dependence Current Visit: Yes Status: Chronic Assessment and plan: Patient reports smoking approximately 1 pack day. He denies interest in smoking cessation. (8) HLD (hyperlipidemia) Current Visit: Yes Status: Chronic Assessment and plan: Chronic. Continue Lipitor. Lipid panel is within normal limits in Jul, 2016. Qualifiers: Hyperlipidemia type: unspecified Qualified Code(s): E78.5 - Hyperlipidemia , unspecified - Time Spent With Patient less than 15 minutes - Subjective Interval history: Patient was seen and assessed at 1445. Family member at bedside. Patient reports the chest pain now as a 4/10. He states that the pain changes with movement and deep inspiration. He denies any relation to the pain with food. He denies nausea, vomiting, diaphoresis, shortness breath, abdominal pain, headache, double dizziness, lightheadedness. - Constitutional Vitals: Temp Pulse Resp BP Pulse Ox 98.3 F 61 15 127/77 96 01/13/17 19:00 01/13/17 19:00 01/13/17 19:00 01/13/17 19:00 01/13/17 19:00 General appearance: Present: cooperative, mild distress, A&O X 3, no acute distress, answers questions appropriately. Absent: pleasant - Head Head exam: Present: atraumatic, normal inspection, normocephalic - Eye Eye exam: Present: normal appearance, conjuntiva pink, sclera anicteric - Neck Neck exam general surgery: Present: supple, trachea midline. Absent: lymphadenopathy, tenderness - Respiratory Respiratory exam: Present: CTAB. Absent: accessory muscle use, chest wall tenderness, rales, rhonchi, wheezes - Cardiovascular Cardiovascular exam: Present: RRR, +S1, +S2. Absent: diastolic murmur, gallop, rubs, systolic murmur - GI/Abdominal GI/Abdominal exam: Present: normal bowel sounds, soft, tenderness. Absent: distended, firm, guarding, hepatomegaly - Extremities Exam Extremities exam: Present: normal capillary refill, normal inspection, warm, radial pulses palpable and symmetrical. Absent: calf tenderness, cyanotic, pedal edema - Neurological Exam Neurological exam: Present: alert, oriented X3, no focal deficits. Absent: facial droop, speech deficit - Skin Skin exam: Present: dry, intact, normal color, warm. Absent: rash Internal Medicine: Result - Labs CBC & Chem 7: 01/13/17 03:24 01/13/17 03:24 Labs: Short CBC 01/13/17 Range/Units 03:24 WBC 6.5 (4.3-11.1) K/mcL Hgb 17.0 H (12.9-16.9) g/dL Hct 50.9 H (37.5-50.1) % Plt Count 242 (140-400) K/mcL Neutrophils # 3.8 (1.6-8.9) K/mcL BMP 01/13/17 03:24 Sodium 139 Potassium 4.0 Chloride 106 Carbon Dioxide 28 BUN 9 Creatinine 1.04 Glucose 87 Calcium 9.1 Cardiac Enzymes 01/12/17 01/13/17 01/13/17 Range/Units 21:47 03:24 09:15 Troponin I 0.01 0.00 0.01 (0-0.03) ng/mL Liver Function 01/13/17 Range/Units 03:24 Total Bilirubin 0.5 (0.2-1.2) mg/dL AST 12 (5-34) Units/L ALT 14 (0-55) Units/L Alkaline Phosphatase 73 (38-126) Units/L Albumin 2.9 L (3.5-5.0) g/dL - ABG Interpretation ABG results: PT/INR, D-dimer PT 10.9 Seconds (9.4-12.1) 01/12/17 18:41 Consult Discharge Plan - Plan Referrals: Yamila Jacome, ZHANNA [Primary Care Provider] -
[2017-01-13] MEDS: traZODone 50 MG TABLET PO SCH (22:11)
[2017-01-13] MEDS: Nitroglycerin 0.4 MG TAB.SUBL SL PRN ×2 (22:31→22:45)
[2017-01-14] MEDS: Famotidine 20 MG/2 ML VIAL IVP SCH ×2 (06:49→16:41)
[2017-01-14] MEDS: *HR* Heparin 5,000 UNIT/ML VIAL SQ SCH ×3 (06:49→22:55)
--- NOTE | 2017-01-14 08:41 | Discharge Summary ---
Date of Encounter: 01/14/17 Time of Encounter: 07:45 - Discharge Diagnosis (1) Chest pain Priority: Primary Status: Acute Comments: Patient reports 3 day history of midsternal chest pain with radiation to his left arm. Onset while lying down and watch TV 4 nights ago. Patient reports it feels better although it still hurts and feels heaviness chest. The pain does change with movement and deep breathing. He denies any relation to food and the pain. The pain is also reproducible in epigastric area with palpation. He denies nausea, vomiting, diaphoresis, diarrhea, or shortness of breath. Patient's abdomen is tender to palpation in epigastric area. Patient's chest x-ray was negative. Troponins are negative 3. She has a negative stress test in Jul, 2016. At the same time, in Jul, 2016 patient also had an echocardiogram that showed an LVEF of 55-60% with normal LV systolic function, mild concentric LV hypertrophy and no significant valvular dysfunction , and all wall segments showed normal motion. The pain is not concerning at this time for ACS. Is more concerning for patient 's GERD symptoms or ulcer disease. Patient was given a GI cocktail last evening and patient reports adequate relief. He states later in the evening he ate a bag of potato chips and drank some soda and the pain began again. I will send patient home with a prescription for Carafate 1 g 4 times a day, omeprazole 20 mg daily. I will also put in a referral to GI. Qualifiers: Chest pain type: chest pain on breathing Qualified Code(s): R07.1 - Chest pain on breathing; R07.81 - Pleurodynia (2) Hypertension Priority: Secondary Status: Chronic Comments: Blood pressure has been well controlled in the hospital. Continue to monitor blood pressure after discharge. Continue home medications. Qualifiers: Hypertension type: essential hypertension Qualified Code(s): I10 - Essential (primary) hypertension (3) Seizure disorder Priority: Secondary Status: Chronic Comments: Chronic. Continue home medications. Follow with primary care and/or neurology. (4) GERD (gastroesophageal reflux disease) Priority: Secondary Status: Chronic Comments: Patient's chest pain is most likely related to GERD symptoms. Patient received relief with GI cocktail, epigastric area is tender to palpation. He states that when epigastric area is palpated it does re-create the same pain. We discussed diet modifications. Patient will be sent home with Carafate, as well as omeprazole. He will need to follow up with GI for continued evaluation and possibly EGD. Qualifiers: Esophagitis presence: esophagitis presence not specified Qualified Code(s) : K21.9 - Gastro-esophageal reflux disease without esophagitis (5) Asthma Priority: Secondary Status: Chronic Comments: No acute exacerbation at this time. Continue home medications. Patient is not in respiratory distress. Lungs are clear without wheezing, rales, rhonchi, stridor. He is not requiring oxygen. Continue normal home medications on discharge. Qualifiers: Asthma severity: unspecified severity Asthma persistence: unspecified Asthma complication type: unspecified Qualified Code(s): J45.909 - Unspecified asthma, uncomplicated (6) Tobacco dependence Priority: Secondary Status: Chronic Comments: Patient states that he smokes approximately 1 pack per day. He denies angina since smoking cessation materials or tools. (7) HLD (hyperlipidemia) Priority: Secondary Status: Chronic Comments: Chronic. Continue Lipitor. Lipid panel was within normal limits in Jul, 2016. Qualifiers: Hyperlipidemia type: unspecified Qualified Code(s): E78.5 - Hyperlipidemia , unspecified (8) DVT prophylaxis Priority: Secondary Status: Acute Comments: Heparin subcutaneous daily. Patient was ambulatory throughout the visit. - Discharge Medications Prescriptions: Omeprazole 20 mg PO DAILY #30 tablet. Sucralfate [Carafate] 1 gm PO TIDAC #90 tablet Home Medications: Diazepam [Valium] 10 mg PO DAILY 12/10/14 [History] Testosterone Cypionate [Depo-Testosterone] 200 mg IM QWEEK 12/10/14 [History] Atorvastatin [Lipitor] 40 mg PO HS 08/08/16 [History] traZODone [TraZODone] 50 mg PO HS 08/08/16 [History] Hydrochlorothiazide [Microzide] 12.5 mg PO DAILY #10 capsule 09/08/16 [Rx] Lisinopril [Zestril] 20 mg PO DAILY #10 tablet 09/08/16 [Rx] Sertraline [Zoloft] 100 mg PO DAILY 10/01/16 [History] Divalproex Sodium [Depakote] 250 mg PO BID #14 tablet. 11/20/16 [Rx] Metoprolol XL (24 HR) Succ [Toprol Xl] 50 mg PO DAILY #7 tab.er.24h 11/20/16 [Rx ] Omeprazole 20 mg PO DAILY #30 tablet. 01/14/17 [Rx] Sucralfate [Carafate] 1 gm PO TIDAC #90 tablet 01/14/17 [Rx] Allergies/Adverse Reactions: 3 Allergy/AdvReac Type Severity Reaction Status Date / Time diphenhydramine Allergy Hives Verified 09/07/16 22:53 [From Benadryl] latex Allergy Rash Verified 09/07/16 22:53 Date of admission: 01/12/17 20:20 Primary care physician: Yamila Jacome Discharging clinician: Hazel Shukla Anticipated date of discharge: 01/14/17 - Patient Status Disposition: Home, Self-Care Condition: Good Functional capacity at discharge: independent ambulation Overall status at discharge: patient is back to baseline - Discharge Instructions Follow Up With: Yamila Jacome CNP [Primary Care Provider] - Liam Stone MD [Partnered Physician] - Additional Instructions: Return to the ER as needed if your symptoms return or worsen. Take your new medications as written, resume your other medications. Return to normal activities as tolerated. Stop smoking Watch eating spicy, fried, or fatty foods - Diet and Activity Activity: increase activity as tolerated Diet: advance to your usual diet Hospital course: Mr. Mills is a 41 year old male past medical history of hypertension, seizure disorder, Klinefelter's, GERD, asthma, smoking, hyperlipidemia. He presents to the emergency department with complaint of chest pain prior to arrival. He reports 3 day history of midsternal chest pain with radiation to left arm. Onset when he was lying down and watch TV now 4 nights ago. Patient reported yesterday the chest pain felt better although it still was there she described as a heaviness in his chest. The pain was reproducible with movement and deep breathing, also with palpation to epigastric area. He denies any relation to food and the pain. He denies nausea, vomiting, diaphoresis, diarrhea, or shortness of breath. All testing was negative. Patient had a negative stress in Jul, 2016 and at that same time he also had an echocardiogram that showed an LVEF of 55-60% with normal LV systolic function mild LV hypertrophy and no significant valvular dysfunction. Patient did save relief from pain with a GI cocktail. He said the pain returned later in the evening when he ate a bag of potato chips and drank some soda. Patient and I discussed diet modifications, as well as smoking cessation. He states he is not interested in stopping smoking at this time. Patient also reports a lot of stress in his home and states that everyone yells and fights with sometimes can cause him to have some stomach upset. I will send him home with a prescription for Carafate, omeprazole, and also refer him to GI for possible EGD. Vital signs are stable and within normal limits, patient is appropriate for discharge. Time spent discussing smoking cessation with patient: 3 to 10 minutes - Time Spent with Patient Total time spent providing and/or coordinating discharge services: Less than 30 minutes - Constitutional Vitals: Temp Pulse Resp BP Pulse Ox 97.8 F 57 16 112/67 95 01/14/17 03:00 01/14/17 03:00 01/14/17 03:00 01/14/17 03:00 01/14/17 03:00 General appearance: Present: cooperative, mild distress, A&O X 3, no acute distress, answers questions appropriately. Absent: pleasant - Head Head exam: Present: atraumatic, normal inspection, normocephalic - Eye Eye exam: Present: normal appearance, conjuntiva pink, sclera anicteric - Neck Neck exam general surgery: Present: supple, trachea midline. Absent: lymphadenopathy, tenderness - Respiratory Respiratory exam: Present: CTAB. Absent: accessory muscle use, rales, rhonchi, wheezes - Cardiovascular Cardiovascular exam: Present: RRR, +S1, +S2. Absent: diastolic murmur, gallop, rubs, systolic murmur - GI/Abdominal GI/Abdominal exam: Present: hepatomegaly, normal bowel sounds, soft, no peritoneal signs. Absent: distended, tenderness - Extremities Exam Extremities exam: Present: warm, radial pulses palpable and symmetrical. Absent : calf tenderness, cyanotic, pedal edema - Neurological Exam Neurological exam: Present: alert, oriented X3, no focal deficits. Absent: facial droop, speech deficit - Skin Skin exam: Present: dry, intact, normal color, warm. Absent: rash
[2017-01-14] MEDS ORDERED: Metoprolol XL (24 HR) Succ 50 MG TAB.ER.24H PO SCH (09:00)
[2017-01-14] MEDS: Lisinopril 20 MG TABLET PO SCH (09:25)
[2017-01-14] MEDS: hydroCHLOROthiazide 25 MG TABLET PO SCH (09:25)
[2017-01-14] MEDS: diazePAM 10 MG TABLET PO SCH (09:27)
[2017-01-14] MEDS: Aspirin 81 MG TAB.CHEW PO SCH (09:30)
[2017-01-14] MEDS: Sucralfate 1 GM TABLET PO SCH ×4 (09:30→22:55)
[2017-01-14] MEDS: Divalproex (12 HR) 250 MG TABLET PO SCH ×2 (09:30→22:55)
--- NOTE | 2017-01-14 11:15 | Electrocardiograph Report ---
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
[2017-01-14] MEDS: *HR* Morphine 2 MG/ML SYRINGE IVP PRN (18:58)
[2017-01-14] MEDS: traZODone 50 MG TABLET PO SCH (22:55)
[2017-01-14] MEDS ORDERED: Acetaminophen 325 MG TABLET PO PRN (23:27)
[2017-01-15] MEDS: *HR* Heparin 5,000 UNIT/ML VIAL SQ SCH (06:20)
[2017-01-15] MEDS: Famotidine 20 MG/2 ML VIAL IVP SCH (06:20)
[2017-01-15 07:12] VITALS: BP 121/75
--- NOTE | 2017-01-15 07:29 | Internal Med Progress Note ---
Date of Encounter: 01/15/17 Time of Encounter: 07:20 - Assessment and plan (1) Chest pain Current Visit: Yes Status: Acute Assessment and plan: Patient reports 3 day history of midsternal chest pain with radiation to his left arm. Onset while lying down and watch TV 3 nights ago. Patient reports it feels better although it still hurts and feels heaviness chest. The pain does change with movement and deep breathing. He denies any relation to food and the pain. The pain is also reproducible in epigastric area with palpation. He denies nausea, vomiting, diaphoresis, diarrhea, or shortness of breath. Patient's chest x-ray was negative. Troponins are negative 3. She has a negative stress test in Jul, 2016. At the same time, in Jul, 2016 patient also had an echocardiogram that showed an LVEF of 55-60% with normal LV systolic function, mild concentric LV hypertrophy and no significant valvular dysfunction , and all wall segments showed normal motion. The pain is not concerning at this time for ACS. Is more concerning for patient 's GERD symptoms or ulcer disease. Patient was given a GI cocktail, received adequate relief until he ate several hours later. Patient will be sent home with Sulcralfate 1 g 3 times a day with meals, as well as Omeprazole 20mg po daily. Qualifiers: Chest pain type: chest pain on breathing Qualified Code(s): R07.1 - Chest pain on breathing; R07.81 - Pleurodynia (2) Hypertension Current Visit: Yes Status: Chronic Assessment and plan: Well controlled. Continue medications. Qualifiers: Hypertension type: essential hypertension Qualified Code(s): I10 - Essential (primary) hypertension (3) Seizure disorder Current Visit: Yes Status: Chronic Assessment and plan: Chronic. Seizure precautions in place. Continue medications. Follow with primary care provider for additional evaluation. (4) GERD (gastroesophageal reflux disease) Current Visit: Yes Status: Chronic Assessment and plan: Chronic. Patient has been given a GI cocktail. He is getting Pepcid 20 mg IV twice a day. I believe that this is the cause of his chest pain/pressure. Pt will be sent home with Carafate 1g TID and Omeprazole 20mg po daily. Qualifiers: Esophagitis presence: esophagitis presence not specified Qualified Code(s) : K21.9 - Gastro-esophageal reflux disease without esophagitis (5) Asthma Current Visit: Yes Status: Chronic Assessment and plan: No acute exacerbation. Continue home medications. Patient is not requiring supplemental oxygen at this time. Lungs are clear, no wheezing, rales, rhonchi , stridor or respiratory distress. Qualifiers: Asthma severity: unspecified severity Asthma persistence: unspecified Asthma complication type: unspecified Qualified Code(s): J45.909 - Unspecified asthma, uncomplicated (6) Tobacco dependence Current Visit: Yes Status: Chronic Assessment and plan: Patient reports smoking approximately 1 pack day. He denies interest in smoking cessation. Has declined nicotine patches. (7) HLD (hyperlipidemia) Current Visit: Yes Status: Chronic Assessment and plan: Chronic. Continue Lipitor. Lipid panel is within normal limits in Jul, 2016. Qualifiers: Hyperlipidemia type: unspecified Qualified Code(s): E78.5 - Hyperlipidemia , unspecified (8) DVT prophylaxis Current Visit: No Status: Acute Assessment and plan: Heparin subcutaneous daily. Patient has been ambulatory in his room. - Subjective Interval history: Patient was seen and assessed at 0720. Pt was sleeping, arouses easily. Denies chest pain, n/v/d, SOB, abd pain, headache, dizziness, or diaphoresis. He was to be discharged yesterday, however, states that he was unable to find a ride and was going to have to walk home. Pt is calling for a ride now. - Constitutional Vitals: Temp Pulse Resp BP Pulse Ox 97.9 F 50 15 121/75 95 01/15/17 07:12 01/15/17 07:12 01/15/17 07:12 01/15/17 07:12 01/15/17 07:12 General appearance: Present: cooperative, mild distress, A&O X 3, no acute distress, answers questions appropriately. Absent: pleasant - Head Head exam: Present: atraumatic, normal inspection, normocephalic - Eye Eye exam: Present: normal appearance, conjuntiva pink, sclera anicteric - Neck Neck exam general surgery: Present: normal inspection, supple, trachea midline. Absent: lymphadenopathy, tenderness - Respiratory Respiratory exam: Present: CTAB. Absent: accessory muscle use, chest wall tenderness, rales, respiratory distress, rhonchi, wheezes - Cardiovascular Cardiovascular exam: Present: RRR, +S1, +S2. Absent: diastolic murmur, gallop, rubs, systolic murmur - GI/Abdominal GI/Abdominal exam: Present: normal bowel sounds, soft, no peritoneal signs. Absent: distended, hepatomegaly, tenderness - Extremities Exam Extremities exam: Present: normal capillary refill, warm, radial pulses palpable and symmetrical. Absent: calf tenderness, cyanotic, pedal edema, tenderness - Neurological Exam Neurological exam: Present: alert, oriented X3, no focal deficits - Skin Skin exam: Present: dry, intact, normal color, warm. Absent: rash Internal Medicine: Result - Labs CBC & Chem 7: 01/13/17 03:24 01/13/17 03:24 - ABG Interpretation ABG results: PT/INR, D-dimer PT 10.9 Seconds (9.4-12.1) 01/12/17 18:41 Consult Discharge Plan - Plan Additional Instructions: Return to the ER as needed if your symptoms return or worsen. Take your new medications as written, resume your other medications. Return to normal activities as tolerated. Stop smoking Watch eating spicy, fried, or fatty foods Referrals: Yamila Jacome CNP [Primary Care Provider] - Liam Stone MD [Partnered Physician] - Prescriptions: Omeprazole 20 mg PO DAILY #30 tablet. Sucralfate [Carafate] 1 gm PO TIDAC #90 tablet
== END 2017-01-15 08:35 | disposition home or self-care (01) ==
LOC: 3BNU 16:44 → EMEROO 16:44 → 3BNU 20:50
PROVIDERS: ADMIT Internal Medicine; ATTEND Registered Nurse

== ENCOUNTER 2017-08-25 19:16 | Observation (INO) ==
--- NOTE | 2017-08-25 19:36 | Emergency Department Note ---
Disposition Clinical Impression: History of Klinefelter syndrome, History of coronary artery disease Chest pain Qualifiers: Chest pain type: unspecified Qualified Code(s): R07.9 - Chest pain, unspecified Disposition: Admitted As Inpatient Condition: Fair General Adult HPI - General Chief complaint: ED Chest Pain Stated complaint: Chest Pain Time Seen by Provider: 08/25/17 19:22 Source: patient Limitations: no limitations Nursing Notes Reviewed: Yes Vital Signs Reviewed: Yes - History of Present Illness HPI Narrative: 42-year-old male with a history of Klinefelter syndrome, diabetes, coronary arterial disease, hypertension. He presents with onset of chest pain at 8 AM. It is left sided and is worse with exertion. He has 2 stents most recent which was placed approximately 2 years ago down in [place]. He also admits to diaphoresis. He is not having dyspnea. No history of PE or DVT. Pain does have an intermittent quality to it. Radiation: non-radiation Pain Severity: severe Pain Scale: 10 Consistency: intermittent Improves with: nothing Worsens with: nothing Associated symptoms: Reports: denies other symptoms Treatments Prior to Arrival: none - Related Data Home Medications Medication Instructions Recorded Confirmed Diazepam [Valium] 10 mg PO DAILY 12/10/14 06/22/17 Atorvastatin [Lipitor] 40 mg PO HS 05/26/17 06/22/17 Capsaicin [Arthritis Pain Relief] 1 appl TP TID PRN 05/26/17 06/22/17 Hydrochlorothiazide [Microzide] 25 mg PO DAILY 05/26/17 06/22/17 Lisinopril [Zestril] 20 mg PO BID 05/26/17 06/22/17 Previous Rx's Medication Instructions Recorded Cyclobenzaprine [Flexeril] 10 mg PO TID PRN #9 tablet 04/13/17 FLUoxetine HCl [Fluoxetine HCl] 40 mg PO DAILY #7 capsule 06/26/17 Lisinopril [Zestril] 20 mg PO BID tablet 06/26/17 Nicotine Patch [Nicoderm] 21 mg TD DAILY #7 patch.td24 06/26/17 OLANZapine [Zyprexa Zydis] 5 mg PO QAM #7 tab.rapdis 06/26/17 OLANZapine [Zyprexa Zydis] 10 mg PO HS #7 tab.rapdis 06/26/17 Omeprazole [PriLOSEC] 20 mg PO DAILY@0630 capsule. 06/26/17 Sertraline [Zoloft] 100 mg PO DAILY #7 tablet 06/26/17 Trazodone HCl 50 mg PO HS #7 tablet 06/26/17 metFORMIN [Glucophage] 500 mg PO BIDWM tablet 06/26/17 Allergies Allergy/AdvReac Type Severity Reaction Status Date / Time diphenhydramine Allergy Hives Verified 08/25/17 19:16 [From Benadryl] latex Allergy Rash Verified 08/25/17 19:16 fenofibrate [From Tricor] AdvReac Chills Verified 08/25/17 19:16 All systems ED: reviewed and negative except as stated. Constitutional: Denies: fever ENT ED: Denies: throat pain Cardiovascular: Reports: chest pain Gastrointestinal: Reports: nausea. Denies: abdominal pain, vomiting, diarrhea Genitourinary: Denies: dysuria Musculoskeletal: Denies: back pain Integumentary: Denies: rash Neurological: Denies: headache Endocrine: Denies: polyuria Past Medical History - Past Medical History Medical history: Reports: asthma, diabetes, GERD, hyperlipidemia, hypertension, myocardial infarction, seizures, TIA, other Surgical history: Reports: cholecystectomy, vasectomy Psychiatric history: Reports: depression, previous psychiatric hospitalization - Social History Smoking Status: Current some day smoker Smokeless Tobacco Status: No (vapor) Alcohol use: Reports: none Drug use: Reports: none Physical Exam - General Limitations: no limitations General appearance: alert - Head Head exam: atraumatic - Eye Eye exam: Present: normal appearance, PERRL - ENT ENT exam: normal exam, normal oropharynx - Neck Neck exam: Present: normal inspection - Chest Chest inspection: Present: normal inspection - Respiratory Respiratory exam: Present: normal lung sounds bilaterally. Absent: respiratory distress - Cardiovascular Cardiovascular exam: Present: regular rate, normal rhythm - Abdominal Exam Abdominal exam: Present: soft, Non-Tender - Extremities Exam Extremities exam: Present: normal inspection - Neurological Exam Neurological exam: Present: alert, oriented X3 - Psychiatric Psychiatric exam: Present: normal affect, normal mood Course Course Narrative: He has been having intermittent chest discomfort since this morning. He did receive aspirin and nitroglycerin here in the emergency department. EKG is unchanged. His chest x-ray is within normal limits. Troponin is negative. Will admit for chest pain rule out due to his cardiac history. PERC negative. Vital Signs Temperature 98.3 F 08/25/17 19:17 Pulse Rate 83 08/25/17 19:17 Respiratory Rate 16 08/25/17 19:17 Blood Pressure 144/109 08/25/17 19:17 O2 Sat by Pulse Oximetry 99 08/25/17 19:17 Temperature 98.3 F 08/25/17 19:17 Pulse Rate 83 08/25/17 19:17 Respiratory Rate 16 08/25/17 19:17 Blood Pressure 144/109 08/25/17 19:17 O2 Sat by Pulse Oximetry 99 08/25/17 19:35 Oxygen Delivery Oxygen Delivery Room Air Medical Decision Making - Medical Records Medical records reviewed: Yes I reviewed the patient's medical records. - Lab Data Lab results reviewed: Yes I reviewed the patient's lab results. Result diagrams: 08/25/17 19:33 08/25/17 19:33 Lab Results 08/25/17 08/25/17 08/25/17 Range/Units 19:33 19:33 19:33 WBC 5.9 (4.3-11.1) K/mcL RBC 5.59 H (4.19-5.50) M/mcL Hgb 17.3 H (12.9-16.9) g/dL Hct 49.3 (37.5-50.1) % MCV 88.2 (83.0-100.0) fL MCH 30.9 (28.0-33.3) pg MCHC 35.1 (31.6-35.5) g/dL RDW 14.8 H (11.5-14.5) % Plt Count 251 (140-400) K/mcL MPV 9.2 L (9.4-12.4) fL Immature Gran % 0.2 (0-4) % Seg Neutrophils % 59.1 % Lymphocytes % 32.2 % Monocytes % 6.3 % Eosinophils % 1.9 % Basophils % 0.3 % Neutrophils # 3.5 (1.6-8.9) K/mcL Lymphocytes # 1.9 (0.6-4.6) K/mcL Monocytes # 0.4 (0.0-1.3) K/mcL Eosinophils # 0.1 (0.0-0.6) K/mcL Basophils # 0.0 (0.0-0.2) K/mcL PT 10.9 (9.4-12.1) Seconds INR 1.0 Sodium 141 (136-145) mEq/L Potassium 3.4 L (3.5-5.1) mEq/L Chloride 107 (98-107) mEq/L Carbon Dioxide 27 (23-29) mEq/L BUN 10 (6-20) mg/dL Creatinine 1.03 (0.70-1.30) mg/dL Est GFR ( Amer) > 60 (> 60) Est GFR (Non-Af Amer) > 60 (> 60) BUN/Creatinine Ratio 10 (6-26) Glucose 82 (70-105) mg/dL Calculated Osmolality 290 (280-300) Calcium 9.9 (8.6-10.3) mg/dL Troponin I < 0.03 (< 0.04) ng/mL - Radiology Data Radiology results reviewed: Yes I reviewed the patient's radiology results. - EKG Data EKG #1 EKG attestation: Yes I reviewed and interpreted this EKG. EKG shows normal: sinus rhythm Rate: normal Rhythm: NSR [place]/QRS: normal When compared to previous EKG there are: no significant changes Interpretation: unchanged when compared to prior tracing (date)
[2017-08-25 19:48] LABS: Basophils % 0.3 %; Eosinophils # 0.1 K/mcL (0.0-0.6); Eosinophils % 1.9 %; Hematocrit 49.3 % (37.5-50.1); Hemoglobin 17.3 g/dL (12.9-16.9); Immature Granulocytes % 0.2 % (0-4); Lymphocytes # 1.9 K/mcL (0.6-4.6); Lymphocytes % 32.2 %; Mean Corpuscular HGB Conc 35.1 g/dL (31.6-35.5); Mean Corpuscular Hemoglobin 30.9 pg (28.0-33.3); Mean Corpuscular Volume 88.2 fL (83.0-100.0); Mean Platelet Volume 9.2 fL (9.4-12.4); Monocytes # 0.4 K/mcL (0.0-1.3); Monocytes % 6.3 %; Neutrophils # 3.5 K/mcL (1.6-8.9); Platelet Count 251 K/mcL (140-400); Red Blood Count 5.59 M/mcL (4.19-5.50); Red Cell Distribution Width 14.8 % (11.5-14.5); Segmented Neutrophils % 59.1 %
[2017-08-25 19:53] LABS: Prothrombin Time 10.9 Seconds (9.4-12.1)
[2017-08-25 20:19] LABS: Troponin I < 0.03 ng/mL (< 0.04)
[2017-08-25] MEDS ORDERED: Nitroglycerin 0.4 MG TAB.SUBL SL PRN (20:19)
[2017-08-25] MEDS ORDERED: Aspirin 325 MG TABLET PO ONE (20:19)
--- NOTE | 2017-08-25 20:19 | Emergency Department Note ---
Disposition Clinical Impression: History of Klinefelter syndrome, History of coronary artery disease Chest pain Qualifiers: Chest pain type: unspecified Qualified Code(s): R07.9 - Chest pain, unspecified Disposition: Admitted As Inpatient Condition: Fair Time of Disposition: 20:54 General Adult HPI - General Chief complaint: ED Chest Pain Stated complaint: Chest Pain Time Seen by Provider: 08/25/17 19:22 Source: patient Limitations: no limitations - History of Present Illness Pain Scale: 10 Improves with: nothing Worsens with: nothing Associated symptoms: Reports: denies other symptoms Treatments Prior to Arrival: none - Related Data Home Medications Medication Instructions Recorded Confirmed Diazepam [Valium] 10 mg PO DAILY 12/10/14 06/22/17 Atorvastatin [Lipitor] 40 mg PO HS 05/26/17 06/22/17 Capsaicin [Arthritis Pain Relief] 1 appl TP TID PRN 05/26/17 06/22/17 Hydrochlorothiazide [Microzide] 25 mg PO DAILY 05/26/17 06/22/17 Lisinopril [Zestril] 20 mg PO BID 05/26/17 06/22/17 Previous Rx's Medication Instructions Recorded Cyclobenzaprine [Flexeril] 10 mg PO TID PRN #9 tablet 04/13/17 FLUoxetine HCl [Fluoxetine HCl] 40 mg PO DAILY #7 capsule 06/26/17 Lisinopril [Zestril] 20 mg PO BID tablet 06/26/17 Nicotine Patch [Nicoderm] 21 mg TD DAILY #7 patch.td24 06/26/17 OLANZapine [Zyprexa Zydis] 5 mg PO QAM #7 tab.rapdis 06/26/17 OLANZapine [Zyprexa Zydis] 10 mg PO HS #7 tab.rapdis 06/26/17 Omeprazole [PriLOSEC] 20 mg PO DAILY@0630 capsule. 06/26/17 Sertraline [Zoloft] 100 mg PO DAILY #7 tablet 06/26/17 Trazodone HCl 50 mg PO HS #7 tablet 06/26/17 metFORMIN [Glucophage] 500 mg PO BIDWM tablet 06/26/17 Allergies Allergy/AdvReac Type Severity Reaction Status Date / Time diphenhydramine Allergy Hives Verified 08/25/17 19:16 [From Benadryl] latex Allergy Rash Verified 08/25/17 19:16 fenofibrate [From Tricor] AdvReac Chills Verified 08/25/17 19:16 Constitutional: Denies: fever ENT ED: Denies: throat pain Cardiovascular: Reports: chest pain Gastrointestinal: Reports: nausea. Denies: abdominal pain, vomiting, diarrhea Genitourinary: Denies: dysuria Musculoskeletal: Denies: back pain Integumentary: Denies: rash Neurological: Denies: headache Endocrine: Denies: polyuria Past Medical History - Past Medical History Medical history: Reports: asthma, diabetes, GERD, hyperlipidemia, hypertension, myocardial infarction, seizures, TIA, other Surgical history: Reports: cholecystectomy, vasectomy Psychiatric history: Reports: depression, previous psychiatric hospitalization - Social History Smoking Status: Current some day smoker Smokeless Tobacco Status: No (vapor) Alcohol use: Reports: none Drug use: Reports: none Physical Exam - General Limitations: no limitations General appearance: alert Course Vital Signs Temperature 98.3 F 08/25/17 19:17 Pulse Rate 83 08/25/17 19:17 Respiratory Rate 16 08/25/17 19:17 Blood Pressure 144/109 08/25/17 19:17 O2 Sat by Pulse Oximetry 99 08/25/17 19:17 Temperature 98.3 F 08/25/17 19:17 Pulse Rate 83 08/25/17 19:17 Respiratory Rate 16 08/25/17 19:17 Blood Pressure 144/109 08/25/17 19:17 O2 Sat by Pulse Oximetry 99 08/25/17 19:35 Oxygen Delivery Oxygen Delivery Room Air Medical Decision Making - Lab Data Result diagrams: 08/25/17 19:33 08/25/17 19:33 Lab Results 08/25/17 08/25/17 08/25/17 Range/Units 19:33 19:33 19:33 WBC 5.9 (4.3-11.1) K/mcL RBC 5.59 H (4.19-5.50) M/mcL Hgb 17.3 H (12.9-16.9) g/dL Hct 49.3 (37.5-50.1) % MCV 88.2 (83.0-100.0) fL MCH 30.9 (28.0-33.3) pg MCHC 35.1 (31.6-35.5) g/dL RDW 14.8 H (11.5-14.5) % Plt Count 251 (140-400) K/mcL MPV 9.2 L (9.4-12.4) fL Immature Gran % 0.2 (0-4) % Seg Neutrophils % 59.1 % Lymphocytes % 32.2 % Monocytes % 6.3 % Eosinophils % 1.9 % Basophils % 0.3 % Neutrophils # 3.5 (1.6-8.9) K/mcL Lymphocytes # 1.9 (0.6-4.6) K/mcL Monocytes # 0.4 (0.0-1.3) K/mcL Eosinophils # 0.1 (0.0-0.6) K/mcL Basophils # 0.0 (0.0-0.2) K/mcL PT 10.9 (9.4-12.1) Seconds INR 1.0 Sodium 141 (136-145) mEq/L Potassium 3.4 L (3.5-5.1) mEq/L Chloride 107 (98-107) mEq/L Carbon Dioxide 27 (23-29) mEq/L BUN 10 (6-20) mg/dL Creatinine 1.03 (0.70-1.30) mg/dL Est GFR ( Amer) > 60 (> 60) Est GFR (Non-Af Amer) > 60 (> 60) BUN/Creatinine Ratio 10 (6-26) Glucose 82 (70-105) mg/dL Calculated Osmolality 290 (280-300) Calcium 9.9 (8.6-10.3) mg/dL Troponin I < 0.03 (< 0.04) ng/mL Critical Care Time Critical Care Time: No Attestation Statement - Attestation Attestation: I examined this patient and my medical decision-making was reviewed with the Resident Physician. I agree with the documented findings, disposition and treatment plan as described except to the extent set forth below. Patient to the ED with chief complaint of chest pain. He describes it as heaviness that has been constant since early this morning. History coronary disease with stent placement. States this feels different. He also feels weak and has a headache. States he just does not feel well. He is in no acute distress on examination with heart regular rate and rhythm and clear lungs. Plan. Cardiac workup. His EKG is unchanged from baseline. Workup unremarkable here. Admitted for further cardiac workup.
[2017-08-25 20:20] LABS: BUN/Creatinine Ratio 10 (6-26); Blood Urea Nitrogen 10 mg/dL (6-20); Calcium 9.9 mg/dL (8.6-10.3); Carbon Dioxide 27 mEq/L (23-29); Chloride 107 mEq/L (98-107); Glucose 82 mg/dL (70-105); Osmolality,Calculated 290 (280-300); Potassium 3.4 mEq/L (3.5-5.1); Sodium 141 mEq/L (136-145); eGFR For African Americans > 60 (> 60); eGFR For Non-African Americans > 60 (> 60)
[2017-08-25] MEDS ORDERED: Dextrose Gel 15 GM/37.5 ML TUBE PO PRN ×2 (20:40)
[2017-08-25] MEDS ORDERED: *HR* Dextrose 50 % in Water (Syg) 50 ML SYRINGE IVP PRN (20:40)
[2017-08-25] MEDS ORDERED: D5% in Water 1,000 ML IVC PRN (20:40)
[2017-08-25] MEDS ORDERED: Acetaminophen 325 MG TABLET PO PRN (20:41)
[2017-08-25] MEDS ORDERED: Naloxone 0.4 MG/ML INJ IVP PRN (20:41)
--- NOTE | 2017-08-25 20:43 | Internal Med History&Physical ---
Date of Encounter: 08/26/17 Time of Encounter: 20:38 Internal Medicine - H&P: HPI Chief complaint: chest pain Admitted From: Emergency Dept Plans for Post Hospital Care: Home History of present illness: Mr. 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 He also reports diaphoresis. Pain is intermittent. No aggravating or alleviating factors. Radiates to right shoulder. The patient's workup in the ED with laboratory workup, troponins, EKG and chest x-ray were unremarkable. He is given aspirin 325 mg in the ED. Blood pressure is elevated diastolic admission. Denies any fever, chills, nausea, vomiting, headache, blurry vision, abdominal pain, diarrhea, constipation, urinary symptoms, or neurological symptoms. Past Med Surg Social Fam HX - Past Medical History Medical history: asthma, diabetes, GERD, hyperlipidemia, hypertension, myocardial infarction, seizures, TIA, other Psychiatric history: depression, previous psychiatric hospitalization - Past Surgical History Surgical History: cholecystectomy, vasectomy - Social History Smoking Status: Current some day smoker Smokeless Tobacco Status: No (vapor) Alcohol use: none Drug use: none - Family History Father Living Status: Hx Family Cardiac Disorders: Yes (CAD) Hx Family Neuromuscular Disorders: Yes (CVA) Mother Living Status: Hx Family Cardiac Disorders: Yes (Heart disease) Internal Medicine - H&P: Meds Diazepam [Valium] 10 mg PO DAILY 12/10/14 [History] Cyclobenzaprine [Flexeril] 10 mg PO TID PRN #9 tablet 04/13/17 [Rx] Atorvastatin [Lipitor] 40 mg PO HS 05/26/17 [History] Capsaicin [Arthritis Pain Relief] 1 appl TP TID PRN 05/26/17 [History] Hydrochlorothiazide [Microzide] 25 mg PO DAILY 05/26/17 [History] Lisinopril [Zestril] 20 mg PO BID 05/26/17 [History] FLUoxetine HCl [Fluoxetine HCl] 40 mg PO DAILY #7 capsule 06/26/17 [Rx] Lisinopril [Zestril] 20 mg PO BID tablet 06/26/17 [Rx] Nicotine Patch [Nicoderm] 21 mg TD DAILY #7 patch.td24 06/26/17 [Rx] OLANZapine [Zyprexa Zydis] 5 mg PO QAM #7 tab.rapdis 06/26/17 [Rx] OLANZapine [Zyprexa Zydis] 10 mg PO HS #7 tab.rapdis 06/26/17 [Rx] Omeprazole [PriLOSEC] 20 mg PO DAILY@0630 capsule. 06/26/17 [Rx] Sertraline [Zoloft] 100 mg PO DAILY #7 tablet 06/26/17 [Rx] Trazodone HCl 50 mg PO HS #7 tablet 06/26/17 [Rx] metFORMIN [Glucophage] 500 mg PO BIDWM tablet 06/26/17 [Rx] 3 Allergy/AdvReac Type Severity Reaction Status Date / Time diphenhydramine Allergy Hives Verified 08/25/17 19:16 [From Benadryl] latex Allergy Rash Verified 08/25/17 19:16 fenofibrate [From Tricor] AdvReac Chills Verified 08/25/17 19:16 All Systems PM: A 10-system review of systems was performed and is negative for pertinent findings except as documented above in the HPI. Review of systems: All systems reviewed are negative except for as mentioned above - Constitutional Vitals: Temp Pulse Resp BP Pulse Ox 98.3 F 83 16 144/109 99 08/25/17 19:17 08/25/17 19:17 08/25/17 19:17 08/25/17 19:17 08/25/17 19:35 Exam: GEN: NAD HEENT: AT, NC, No cyanosis, oral mucosa is moist, No JVD Lymphatics: No lymphadenoapthy Eyes: Extrocular muscles intact, anicteric CVS:RRR. S1, S2, No m/r/g RESP: CTAB ABD: Soft, NT, ND, +BS EXT: No edema, No rashes, 2+ DP NEURO: Nonfocal, CN II-XII intact, No focal motor or sensory deficits Psych: Cooperative, Not anxious or depressed Internal Med - H&P Results - Labs CBC & Chem 7: 08/25/17 19:33 08/25/17 19:33 Labs: Short CBC 08/25/17 Range/Units 19:33 WBC 5.9 (4.3-11.1) K/mcL Hgb 17.3 H (12.9-16.9) g/dL Hct 49.3 (37.5-50.1) % Plt Count 251 (140-400) K/mcL Neutrophils # 3.5 (1.6-8.9) K/mcL BMP 08/25/17 19:33 Sodium 141 Potassium 3.4 L Chloride 107 Carbon Dioxide 27 BUN 10 Creatinine 1.03 Glucose 82 Calcium 9.9 Cardiac Enzymes 08/25/17 Range/Units 19:33 Troponin I < 0.03 (< 0.04) ng/mL - Impressions ITS Impressions Chest X-Ray 08/25/17 19:32 IMPRESSION: No acute process. D/ / Rasheed Mills MD / Rasheed Mills MD Interpreting Provider: Rasheed Mills MD - Assessment and plan (1) Chest pain Current Visit: Yes Status: Acute Assessment and plan: We will admit the patient. First set of troponins normal. EKG is unchanged. We will trend his cardiac enzymes. Patient recently had a complete echo in May with EF of 50-55% with mild concentric LVH and mild left ventricular diastolic dysfunction. We will get a repeat limited echo to see if there is any changes. If patient is ordered a stress test has to be done on Sunday as it can't be done tomorrow morning. Patient possibly can be discharged and have follow-up stress test done as an outpatient if his limited echo and troponins are not elevated. Check A1c and lipid panel. Continue statin. Patient was given aspirin in the ED. Sublingual nitroglycerin when necessary. Qualifiers: Chest pain type: unspecified Qualified Code(s): R07.9 - Chest pain, unspecified (2) CAD (coronary artery disease), [place] coronary artery Current Visit: No Status: Acute Assessment and plan: Continue cardiac meds. Qualifiers: [place] vs. transplanted heart: [place] heart Associated angina: without angina Qualified Code(s): I25.10 - Atherosclerotic heart disease of [place] coronary artery without angina pectoris (3) HTN (hypertension) Current Visit: No Status: Acute Assessment and plan: Blood pressure is elevated on admission. We will restart the patient's blood pressure meds. We will add hydralazine IV when necessary. Qualifiers: Hypertension type: essential hypertension Qualified Code(s): I10 - Essential (primary) hypertension (4) Diabetes Current Visit: No Status: Chronic Assessment and plan: We will place the patient on insulin sliding scale. Accu-Cheks. Qualifiers: Diabetes mellitus type: type 2 Diabetes mellitus senior care insulin use: with senior care use Diabetes mellitus complication status: without complication Qualified Code(s): E11.9 - Type 2 diabetes mellitus without complications; Z79.4 - detention (current) use of insulin (5) HLD (hyperlipidemia) Current Visit: No Status: Chronic Assessment and plan: Continue statin. Qualifiers: Hyperlipidemia type: unspecified Qualified Code(s): E78.5 - Hyperlipidemia , unspecified (6) Polycythemia Current Visit: No Status: Chronic Assessment and plan: Chronic likely secondary to smoking and asthma. We will monitor. (7) DVT prophylaxis Current Visit: No Status: Acute Assessment and plan: Heparin subcutaneous - Time Spent With Patient Total time spent is greater than 50% in coordination of care (as documented) at patient's floor/unit and/or counseling patient:
[2017-08-25] MEDS ORDERED: Insulin LISPRO 300 UNITS/3 ML VIAL SQ SCH (21:00)
[2017-08-25] MEDS: *HR* Heparin 5,000 UNIT/ML VIAL SQ SCH (22:09)
--- NOTE | 2017-08-26 02:37 | Event Note ---
Date of Encounter: 08/26/17 Time of Encounter: 02:36 Was called by the nurse caring for the patient stating that they will be doing stress tests on Sunday and not on Sunday this holiday . I was not aware of that. Will order a stress test.
[2017-08-26 04:40] LABS: Basophils % 0.4 %; Eosinophils # 0.1 K/mcL (0.0-0.6); Eosinophils % 2.4 %; Hematocrit 42.2 % (37.5-50.1); Immature Granulocytes % 0.2 % (0-4); Lymphocytes # 2.1 K/mcL (0.6-4.6); Lymphocytes % 41.9 %; Mean Corpuscular HGB Conc 35.1 g/dL (31.6-35.5); Mean Corpuscular Hemoglobin 31.2 pg (28.0-33.3); Mean Corpuscular Volume 88.8 fL (83.0-100.0); Mean Platelet Volume 9.5 fL (9.4-12.4); Monocytes # 0.2 K/mcL (0.0-1.3); Monocytes % 4.8 %; Neutrophils # 2.5 K/mcL (1.6-8.9); Platelet Count 224 K/mcL (140-400); Red Blood Count 4.75 M/mcL (4.19-5.50); Red Cell Distribution Width 14.8 % (11.5-14.5); Segmented Neutrophils % 50.3 %
[2017-08-26 04:59] LABS: Hemoglobin 14.8 g/dL (12.9-16.9)
[2017-08-26 05:04] LABS: BUN/Creatinine Ratio 11 (6-26); Blood Urea Nitrogen 11 mg/dL (6-20); Calcium 9.2 mg/dL (8.6-10.3); Carbon Dioxide 27 mEq/L (23-29); Chloride 108 mEq/L (98-107); Chol/HDL Ratio 6.1 (0-4.9); Cholesterol 183 mg/dL (< 200); Glucose 95 mg/dL (70-105); HDL Cholesterol 30 mg/dL (40-59); LDL Cholesterol,Calculated 112 mg/dL (0-99); Magnesium 1.8 mg/dL (1.6-2.6); Osmolality,Calculated 289 (280-300); Potassium 3.9 mEq/L (3.5-5.1); Sodium 140 mEq/L (136-145); Triglycerides 205 mg/dL (< 150); Troponin I < 0.03 ng/mL (< 0.04); eGFR For African Americans > 60 (> 60); eGFR For Non-African Americans > 60 (> 60)
[2017-08-26] MEDS: *HR* Heparin 5,000 UNIT/ML VIAL SQ SCH (05:30)
[2017-08-26] MEDS ORDERED: Regadenoson 0.4 MG/5 ML SYRINGE IVP ONE (05:33)
[2017-08-26 12:18] VITALS: BP 155/93
[2017-08-26] MEDS: Insulin LISPRO 300 UNITS/3 ML VIAL SQ SCH (12:46)
--- NOTE | 2017-08-26 15:01 | Discharge Summary ---
- NOTES TO OUTPATIENT PROVIDER Notes to Outpatient Provider: Pt was admitted for chest pain in the setting of history of CAD, HTN, HTD, DM. Pt denies chest pain on exam and stress, troponins negative. CXR negative and EKG without acute ST changes. Pt admits to nonadherence with follow up, diet and medications. Orders not resulted at time of discharge: Pending orders 08/26/17 02:36 NM gonzalo perf SPECT multi [NM] Routine Date of Encounter: 08/26/17 Time of Encounter: 12:55 - Discharge Diagnosis (1) Chest pain Priority: Primary Status: Acute Assessment and Plan: Pt denies chest pain on exam today. No SOB, diaphoresis, n/v, pain is not reproducible. Pt reports that he is under a lot of stress due to family issues. Echo 05/20 shows LVEF 50-55% with mild concentric LVH and mild LVDD. Limited echo today without significant changes. Troponins negative. Chest xray negative. Stress negative today Pt with multiple risk factors including hyperlipidemia, HTN, prior CAD and [place]. Pt admits to not always adhering to medication schedule and does not follow up with PCP or cardiology as scheduled. Pt states that he has a lot of family stress and is trying to save enough money to move out on his own. Recommend trying to eliminate some stress and to follow up with PCP. Chest X-Ray 08/25/17 19:32 IMPRESSION: No acute process. D/ / Rasheed Mills MD / Rasheed Mills MD Interpreting Provider: Rasheed Mills MD Echocardiogram Limited Views 08/26/17 20:40 Impressions: LVEF 50%. No significant change in LV systolic function when compared to Echo 05/27/2017. Left Ventricular Wall Motion: Rest Echo Findings All wall segments showed normal motion. Findings: Study Quality * Technically adequate exam. ECG Findings * Sinus bradycardia. Left Ventricle * LVEF 50%. * Mild concentric left ventricular hypertrophy. Right Ventricle * Normal right ventricular structure and function. Aorta * Normally sized aortic root. Pericardium * There is no pericardial effusion present. Left Atrium * Normal left atrial size. Right Atrium * Normal right atrial size. IVC * The IVC is not dilated. Qualifiers: Chest pain type: unspecified Qualified Code(s): R07.9 - Chest pain, unspecified (2) Diabetes Priority: Secondary Status: Chronic Assessment and Plan: A1c 5/3% in May,. Continue accuchecks. Qualifiers: Diabetes mellitus type: type 2 Diabetes mellitus intermediate insulin use: with admissions specialist use Diabetes mellitus complication status: without complication Qualified Code(s): E11.9 - Type 2 diabetes mellitus without complications; Z79.4 - senior care (current) use of insulin (3) DVT prophylaxis Priority: Secondary Status: Acute Assessment and Plan: Heparin (4) HLD (hyperlipidemia) Priority: Secondary Status: Chronic Assessment and Plan: Continue statin. Triglycerides elevated. Qualifiers: Hyperlipidemia type: unspecified Qualified Code(s): E78.5 - Hyperlipidemia , unspecified (5) Polycythemia Priority: Secondary Status: Chronic Assessment and Plan: Resolved. (6) CAD (coronary artery disease), [place] coronary artery Priority: Secondary Status: Acute Assessment and Plan: Continue aspirin. Patient does not appear to be on any beta zurdo or statin. Recommend lifestyle modifications for hyper-triglyceridemia Qualifiers: [place] vs. transplanted heart: [place] heart Associated angina: without angina Qualified Code(s): I25.10 - Atherosclerotic heart disease of [place] coronary artery without angina pectoris (7) HTN (hypertension) Priority: Secondary Status: Acute Assessment and Plan: Well-controlled in the hospital setting. Continue home medications. Qualifiers: Hypertension type: essential hypertension Qualified Code(s): I10 - Essential (primary) hypertension Hospital course: Mr. Mills is a 42 year old male with past medical history of diabetes, hypertension, Klinefelter syndrome, GERD, asthma, tobacco dependence, hyperlipidemia, TIA, CVA, CAD, bipolar 2. See assessment and plan for hospital course. Discharge discussed with: patient, family - Time Spent with Patient Total time spent providing and/or coordinating discharge services: Less than 30 minutes - Discharge Medications Home Medications: Diazepam [Valium] 10 mg PO DAILY 12/10/14 [History] Cyclobenzaprine [Flexeril] 10 mg PO TID PRN #9 tablet 04/13/17 [Rx] Atorvastatin [Lipitor] 40 mg PO HS 05/26/17 [History] Capsaicin [Arthritis Pain Relief] 1 appl TP TID PRN 05/26/17 [History] Hydrochlorothiazide [Microzide] 25 mg PO DAILY 05/26/17 [History] Lisinopril [Zestril] 20 mg PO BID 05/26/17 [History] FLUoxetine HCl [Fluoxetine HCl] 40 mg PO DAILY #7 capsule 06/26/17 [Rx] Lisinopril [Zestril] 20 mg PO BID tablet 06/26/17 [Rx] Nicotine Patch [Nicoderm] 21 mg TD DAILY #7 patch.td24 06/26/17 [Rx] OLANZapine [Zyprexa Zydis] 5 mg PO QAM #7 tab.rapdis 06/26/17 [Rx] OLANZapine [Zyprexa Zydis] 10 mg PO HS #7 tab.rapdis 06/26/17 [Rx] Omeprazole [PriLOSEC] 20 mg PO DAILY@0630 capsule.dr 06/26/17 [Rx] Sertraline [Zoloft] 100 mg PO DAILY #7 tablet 06/26/17 [Rx] Trazodone HCl 50 mg PO HS #7 tablet 06/26/17 [Rx] metFORMIN [Glucophage] 500 mg PO BIDWM tablet 06/26/17 [Rx] Allergies/Adverse Reactions: 3 Allergy/AdvReac Type Severity Reaction Status Date / Time diphenhydramine Allergy Hives Verified 08/25/17 19:16 [From Benadryl] latex Allergy Rash Verified 08/25/17 19:16 fenofibrate [From Tricor] AdvReac Chills Verified 08/25/17 19:16 Date of admission: 08/25/17 20:48 Primary care physician: PCP NONE Discharging clinician: Hazel Shukla Anticipated date of discharge: 08/26/17 - Constitutional Vitals: Temp Pulse Resp BP Pulse Ox 98.0 F 55 16 155/93 99 08/26/17 06:53 08/26/17 12:15 08/26/17 12:15 08/26/17 12:15 08/26/17 12:15 General appearance: Present: cooperative, A&O X 3, pleasant, no acute distress, answers questions appropriately - Head Head exam: Present: atraumatic, normal inspection, normocephalic - Eye Eye exam: Present: normal appearance, conjuntiva pink, sclera anicteric - Neck Neck exam general surgery: Present: supple, trachea midline. Absent: lymphadenopathy, tenderness - Respiratory Respiratory exam: Present: CTAB. Absent: accessory muscle use, chest wall tenderness, decreased breath sounds, rales, respiratory distress, rhonchi, wheezes - Cardiovascular Cardiovascular exam: Present: RRR, +S1, +S2. Absent: diastolic murmur, gallop, rubs, systolic murmur - GI/Abdominal GI/Abdominal exam: Present: normal bowel sounds, soft, no peritoneal signs. Absent: distended, hepatomegaly, tenderness - Extremities Exam Extremities exam: Present: normal capillary refill, normal inspection, warm, radial pulses palpable and symmetrical. Absent: calf tenderness, cyanotic, pedal edema, tenderness - Neurological Exam Neurological exam: Present: alert, oriented X3, no focal deficits. Absent: altered, facial droop, speech deficit - Skin Skin exam: Present: dry, intact, normal color, warm. Absent: rash - Patient Status Disposition: Home, Self-Care Condition: Good Functional capacity at discharge: independent ambulation Overall status at discharge: patient is back to baseline - Discharge Instructions Follow Up With: NONE,PCP [Primary Care Provider] - Additional Instructions: Please follow up with your PCP in the next 7 days for a recheck. Take your medications as directed. Return to the ER as needed for any other problems or concerns or if your symptoms return or worsen. Return to your normal diet and activities as tolerated. - Diet and Activity Activity: increase activity as tolerated Diet: advance to your usual diet
[2017-08-28 08:50] LABS: Estimated Average Glucose 94 mg/dl; Hemoglobin A1C 4.9 %
--- NOTE | 2017-08-29 06:43 | Electrocardiograph Report ---
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
== END 2017-08-26 16:00 | disposition home or self-care (01) ==
LOC: EMEROO 19:16 → 3BNU 19:16
PROVIDERS: ADMIT Internal Medicine; ATTEND Registered Nurse

== ENCOUNTER 2019-05-27 14:15 | Observation (INO) ==
[2019-05-27] MEDS: Nitroglycerin 0.4 MG TAB.SUBL SL PRN ×3 (15:04→15:56)
[2019-05-27 15:08] LABS: Basophils % 0.2 %; Eosinophils % 0.4 %; Hemoglobin 15.1 g/dL (12.9-16.9); Immature Granulocytes % 0.4 % (0-4); Lymphocytes # 1.1 K/mcL (0.6-4.6); Lymphocytes % 19.9 %; Mean Corpuscular HGB Conc 32.1 g/dL (31.6-35.5); Mean Corpuscular Hemoglobin 27.4 pg (28.0-33.3); Mean Corpuscular Volume 85.1 fL (83.0-100.0); Mean Platelet Volume 9.2 fL (9.4-12.4); Monocytes # 0.3 K/mcL (0.0-1.3); Monocytes % 4.7 %; Platelet Count 236 K/mcL (140-400); Red Blood Count 5.52 M/mcL (4.19-5.50); Red Cell Distribution Width 14.1 % (11.5-14.5); Segmented Neutrophils % 74.4 %; White Blood Count 5.4 K/mcL (4.3-11.1)
[2019-05-27 15:09] LABS: INR 1.1; Prothrombin Time 12.3 Seconds (9.4-12.1)
[2019-05-27 15:12] LABS: Activated Partial Thrombo Time 35.5 Seconds (26.0-36.0)
[2019-05-27 15:20] LABS: BUN/Creatinine Ratio 14 (6-26); Blood Urea Nitrogen 15 mg/dL (6-20); Calcium 9.3 mg/dL (8.6-10.3); Carbon Dioxide 27 mEq/L (23-29); Chloride 107 mEq/L (98-107); Glucose 117 mg/dL (70-105); Osmolality,Calculated 294 (280-300); Potassium 3.4 mEq/L (3.5-5.1); Sodium 141 mEq/L (136-145); Troponin I < 0.03 ng/mL (< 0.04); eGFR For African Americans > 60 (> 60); eGFR For Non-African Americans > 60 (> 60)
[2019-05-27] MEDS ORDERED: Naloxone 0.4 MG/ML INJ IVP PRN (15:29)
[2019-05-27] MEDS ORDERED: Ondansetron 4 MG/2 ML VIAL IVP PRN (15:29)
[2019-05-27] MEDS ORDERED: *HR* Dextrose 50 % in Water (Syg) 50 ML SYRINGE IVP PRN (15:40)
[2019-05-27] MEDS ORDERED: Ipratropium/Albuterol Neb 3 ML IH PRN (15:40)
[2019-05-27] MEDS ORDERED: Dextrose Gel 15 GM/37.5 ML TUBE PO PRN ×2 (15:40)
[2019-05-27] MEDS ORDERED: D5% in Water 1,000 ML IVC PRN (15:40)
[2019-05-27] MEDS ORDERED: GuaiFENesin/Codeine Oral Soln 5 ML UDC PO PRN (15:41)
[2019-05-27] MEDS ORDERED: Ketorolac 15 MG/ML VIAL IVP PRN (15:41)
[2019-05-27 15:54] LABS: Chol/HDL Ratio 4.6 (0-4.9); Cholesterol 162 mg/dL (< 200); HDL Cholesterol 35 mg/dL (40-59); LDL Cholesterol,Calculated 90 mg/dL (0-99); Triglycerides 183 mg/dL (< 150)
[2019-05-27 17:56] LABS: Estimated Average Glucose 111 mg/dl
[2019-05-27] MEDS: *HR* Heparin 5,000 UNIT/ML VIAL SQ SCH (18:39)
[2019-05-27] MEDS: Insulin LISPRO 300 UNITS/3 ML VIAL SQ SCH ×2 (18:39→20:05)
[2019-05-27] MEDS: diazePAM 10 MG TABLET PO SCH (21:37)
[2019-05-27] MEDS: lisinopriL 20 MG TABLET PO SCH (21:37)
[2019-05-27] MEDS: amLODIPine 5 MG TABLET PO SCH (21:38)
[2019-05-27 22:24] LABS: Adenovirus Not Detected (Not Detect); Bordetella Pertussis Not Detected (Not Detect); Chlamydophila pneumoniae Not Detected (Not Detect); Coronavirus 229E Not Detected (Not Detect); Coronavirus HKU1 Not Detected (Not Detect); Coronavirus NL63 Not Detected (Not Detect); Coronavirus OC43 Not Detected (Not Detect); Human Metapneumovirus Not Detected (Not Detect); Human Rhinovirus/Enterovirus Not Detected (Not Detect); Influenza A Subtype 2009 H1 Not Detected (Not Detect); Influenza B Not Detected (Not Detect); Mycoplasma pneumoniae Not Detected (Not Detect); Parainfluenza Virus 1 Not Detected (Not Detect); Parainfluenza Virus 2 Not Detected (Not Detect); Parainfluenza Virus 3 Not Detected (Not Detect); Parainfluenza Virus 4 Not Detected (Not Detect); Respiratory Syncytial Virus Not Detected (Not Detect)
[2019-05-28 03:06] LABS: Basophils % 0.2 %; Eosinophils # 0.1 K/mcL (0.0-0.6); Eosinophils % 1.1 %; Hematocrit 45.8 % (37.5-50.1); Hemoglobin 14.7 g/dL (12.9-16.9); Immature Granulocytes % 0.2 % (0-4); Lymphocytes # 1.5 K/mcL (0.6-4.6); Lymphocytes % 31.8 %; Mean Corpuscular HGB Conc 32.1 g/dL (31.6-35.5); Mean Corpuscular Hemoglobin 27.3 pg (28.0-33.3); Mean Platelet Volume 9.4 fL (9.4-12.4); Monocytes # 0.3 K/mcL (0.0-1.3); Monocytes % 6.3 %; Neutrophils # 2.9 K/mcL (1.6-8.9); Platelet Count 230 K/mcL (140-400); Red Blood Count 5.39 M/mcL (4.19-5.50); Red Cell Distribution Width 14.2 % (11.5-14.5); Segmented Neutrophils % 60.4 %; White Blood Count 4.8 K/mcL (4.3-11.1)
[2019-05-28 03:23] LABS: BUN/Creatinine Ratio 13 (6-26); Blood Urea Nitrogen 15 mg/dL (6-20); Calcium 9.2 mg/dL (8.6-10.3); Carbon Dioxide 27 mEq/L (23-29); Chloride 107 mEq/L (98-107); Glucose 96 mg/dL (70-105); Magnesium 1.9 mg/dL (1.6-2.6); Osmolality,Calculated 289 (280-300); Potassium 3.7 mEq/L (3.5-5.1); Sodium 139 mEq/L (136-145); eGFR For African Americans > 60 (> 60); eGFR For Non-African Americans > 60 (> 60)
[2019-05-28] MEDS: *HR* Heparin 5,000 UNIT/ML VIAL SQ SCH ×2 (05:23→17:27)
[2019-05-28] MEDS: Insulin LISPRO 300 UNITS/3 ML VIAL SQ SCH ×4 (08:36→22:34)
[2019-05-28] MEDS: lisinopriL 20 MG TABLET PO SCH ×2 (08:41→22:38)
[2019-05-28] MEDS: Divalproex (12 HR) 250 MG TABLET PO SCH (08:41)
[2019-05-28] MEDS: amLODIPine 5 MG TABLET PO SCH (08:41)
[2019-05-28] MEDS: hydroCHLOROthiazide 25 MG TABLET PO SCH (08:41)
[2019-05-28] MEDS: diazePAM 10 MG TABLET PO SCH ×2 (08:41→22:38)
[2019-05-28] MEDS ORDERED: LISINOPRIL 20 MG PO SCH (09:00)
[2019-05-28] MEDS: Metoprolol XL (24 HR) Succ 25 MG TAB.ER.24H PO SCH (12:04)
[2019-05-28] MEDS: predniSONE 20 MG TABLET PO SCH (12:37)
[2019-05-28] MEDS: Nitroglycerin 0.4 MG TAB.SUBL SL PRN ×2 (17:25→22:58)
[2019-05-29] MEDS: *HR* Heparin 5,000 UNIT/ML VIAL SQ SCH (05:12)
[2019-05-29] MEDS ORDERED: *HR* HYDROcodone/Acet 5/325 mg TABLET PO ONE (06:09)
[2019-05-29 06:57] VITALS: BP 144/90
[2019-05-29] MEDS: Divalproex (12 HR) 250 MG TABLET PO SCH (09:21)
[2019-05-29] MEDS: Metoprolol XL (24 HR) Succ 25 MG TAB.ER.24H PO SCH (09:21)
[2019-05-29] MEDS: diazePAM 10 MG TABLET PO SCH (09:21)
[2019-05-29] MEDS: amLODIPine 5 MG TABLET PO SCH (09:21)
[2019-05-29] MEDS: predniSONE 20 MG TABLET PO SCH (09:21)
[2019-05-29] MEDS: lisinopriL 20 MG TABLET PO SCH (09:21)
[2019-05-29] MEDS: hydroCHLOROthiazide 25 MG TABLET PO SCH (09:21)
[2019-05-29] MEDS: Insulin LISPRO 300 UNITS/3 ML VIAL SQ SCH (09:22)
== END 2019-05-29 12:34 | disposition home or self-care (01) ==
LOC: EMEROOARM 14:15 → 3BNU 14:15 → MERGE 16:01 → SUATTDRO 16:01 → 3BNU 17:17
PROVIDERS: ADMIT Internal Medicine; ATTEND Internal Medicine

== ENCOUNTER 2020-05-23 19:07 | Observation (INO) ==
[2020-05-23 19:44] LABS: Basophils % 0.3 %; Eosinophils # 0.1 K/mcL (0.0-0.6); Eosinophils % 0.7 %; Hematocrit 50.4 % (37.5-50.1); Hemoglobin 16.6 g/dL (12.9-16.9); Immature Granulocytes % 0.3 % (0-4); Lymphocytes # 1.7 K/mcL (0.6-4.6); Mean Corpuscular HGB Conc 32.9 g/dL (31.6-35.5); Mean Corpuscular Hemoglobin 28.3 pg (28.0-33.3); Mean Platelet Volume 9.3 fL (9.4-12.4); Monocytes # 0.4 K/mcL (0.0-1.3); Monocytes % 5.5 %; Neutrophils # 5.3 K/mcL (1.6-8.9); Platelet Count 242 K/mcL (140-400); Red Blood Count 5.86 M/mcL (4.19-5.50); Red Cell Distribution Width 15.1 % (11.5-14.5); Segmented Neutrophils % 70.2 %; White Blood Count 7.6 K/mcL (4.3-11.1)
[2020-05-23 20:02] LABS: Bilirubin,Urine Negative (Negative); Blood,Urine Negative (Negative); Clarity,Urine Clear (Clear); Color,Urine Light-Yellow (Yellow); Glucose,Urine (UA) Normal (Normal); Ketones,Urine Negative (Negative); Leukocyte Esterase,Urine Negative (Negative); Nitrite,Urine Negative (Negative); Protein,Urine Trace mg/dL (Neg-Trace); Specific Gravity,Urine 1.019 (1.010-1.025); Urobilinogen,Urine Normal (Normal)
[2020-05-23 20:14] LABS: Alanine Aminotransferase 11 Units/L (7-52); Albumin 3.9 g/dL (3.5-5.7); Albumin/Globulin Ratio 1.2 (1.1-2.2); Alkaline Phosphatase 71 Units/L (34-104); Aspartate Amino Transferase 13 Units/L (13-39); BUN/Creatinine Ratio 9 (6-26); Bilirubin,Total 0.4 mg/dL (0.3-1.0); Blood Urea Nitrogen 11 mg/dL (6-20); Calcium 9.3 mg/dL (8.6-10.3); Carbon Dioxide 28 mEq/L (23-29); Chloride 103 mEq/L (98-107); Globulin 3.3 g/dL (2.4-3.5); Glucose 150 mg/dL (70-105); Osmolality,Calculated 292 (280-300); Potassium 3.3 mEq/L (3.5-5.1); Sodium 140 mEq/L (136-145); Total Protein 7.2 g/dL (6.4-8.9); Troponin I 0.06 ng/mL (< 0.04); eGFR For African Americans > 60 (> 60); eGFR For Non-African Americans > 60 (> 60)
[2020-05-23] MEDS ORDERED: *HR* Metoprolol 5 MG/5 ML VIAL IVP ONE (20:51)
[2020-05-23] MEDS ORDERED: Ondansetron 4 MG/2 ML VIAL IVP PRN (22:38)
[2020-05-23] MEDS ORDERED: Naloxone 0.4 MG/ML INJ IVP PRN (22:38)
[2020-05-23] MEDS ORDERED: Acetaminophen 325 MG TABLET PO PRN (22:38)
[2020-05-23] MEDS ORDERED: Potassium Chloride Elixir 20 MEQ/15 ML UDC PO ONE (23:43)
[2020-05-24] MEDS ORDERED: *HR* Heparin 5,000 UNIT/ML VIAL SQ SCH (06:00)
[2020-05-24] MEDS ORDERED: *HR* Dextrose 50 % in Water (Vial) 50 ML VIAL IVP PRN (07:10)
[2020-05-24] MEDS ORDERED: D5% in Water 1,000 ML IVC PRN (07:10)
[2020-05-24] MEDS ORDERED: Dextrose Gel 15 GM/37.5 ML TUBE PO PRN ×2 (07:10)
[2020-05-24 08:06] LABS: Basophils % 0.3 %; Eosinophils # 0.1 K/mcL (0.0-0.6); Eosinophils % 1.5 %; Hematocrit 49.2 % (37.5-50.1); Hemoglobin 15.9 g/dL (12.9-16.9); Immature Granulocytes % 0.3 % (0-4); Lymphocytes # 1.8 K/mcL (0.6-4.6); Lymphocytes % 30.1 %; Mean Corpuscular HGB Conc 32.3 g/dL (31.6-35.5); Mean Corpuscular Hemoglobin 28.3 pg (28.0-33.3); Mean Corpuscular Volume 87.5 fL (83.0-100.0); Monocytes # 0.5 K/mcL (0.0-1.3); Monocytes % 7.9 %; Neutrophils # 3.5 K/mcL (1.6-8.9); Platelet Count 218 K/mcL (140-400); Red Blood Count 5.62 M/mcL (4.19-5.50); Red Cell Distribution Width 15.1 % (11.5-14.5); Segmented Neutrophils % 59.9 %; White Blood Count 5.9 K/mcL (4.3-11.1)
[2020-05-24 08:24] LABS: Alanine Aminotransferase 10 Units/L (7-52); Albumin 3.7 g/dL (3.5-5.7); Albumin/Globulin Ratio 1.3 (1.1-2.2); Alkaline Phosphatase 64 Units/L (34-104); Aspartate Amino Transferase 11 Units/L (13-39); BUN/Creatinine Ratio 9 (6-26); Bilirubin,Total 0.6 mg/dL (0.3-1.0); Blood Urea Nitrogen 11 mg/dL (6-20); Carbon Dioxide 28 mEq/L (23-29); Chloride 104 mEq/L (98-107); Globulin 2.9 g/dL (2.4-3.5); Glucose 90 mg/dL (70-105); Magnesium 1.9 mg/dL (1.6-2.6); Osmolality,Calculated 287 (280-300); Phosphorous 3.1 mg/dL (2.7-4.5); Potassium 3.7 mEq/L (3.5-5.1); Sodium 139 mEq/L (136-145); Total Protein 6.6 g/dL (6.4-8.9); eGFR For African Americans > 60 (> 60); eGFR For Non-African Americans > 60 (> 60)
[2020-05-24] MEDS ORDERED: lisinopriL 20 MG TABLET PO SCH (11:30)
[2020-05-24] MEDS ORDERED: Insulin LISPRO 300 UNITS/3 ML VIAL SUBQ SCH (12:00)
[2020-05-24 13:29] VITALS: BP 149/81
== END 2020-05-24 14:49 | disposition home or self-care (01) ==
LOC: EMEROOARM 19:07 → 2ANU 19:07 → 3BNU 19:07 → SUATTDRO 21:18 → 3BNU 22:42
PROVIDERS: ADMIT Family Medicine; ATTEND Internal Medicine

== ENCOUNTER 2021-10-22 21:20 | Observation (INO) ==
[2021-10-22] MEDS ORDERED: Aspirin 81 MG TAB.CHEW PO STA (21:50)
[2021-10-22] MEDS ORDERED: *HR* Labetalol 20 MG/4 ML SYRINGE IVP ONE (21:51)
[2021-10-22 21:59] LABS: Basophils % 0.5 %; Eosinophils # 0.1 K/mcL (0.0-0.6); Eosinophils % 0.7 %; Hematocrit 44.9 % (37.5-50.1); Hemoglobin 14.5 g/dL (12.9-16.9); Immature Granulocytes % 0.2 % (0-4); Lymphocytes # 2.4 K/mcL (0.6-4.6); Lymphocytes % 28.4 %; Mean Corpuscular HGB Conc 32.3 g/dL (31.6-35.5); Mean Corpuscular Hemoglobin 28.1 pg (28.0-33.3); Mean Platelet Volume 9.2 fL (9.4-12.4); Monocytes # 0.6 K/mcL (0.0-1.3); Neutrophils # 5.3 K/mcL (1.6-8.9); Platelet Count 286 K/mcL (140-400); Red Blood Count 5.16 M/mcL (4.19-5.50); Red Cell Distribution Width 14.3 % (11.5-14.5); Segmented Neutrophils % 63.2 %; White Blood Count 8.5 K/mcL (4.3-11.1)
[2021-10-22 22:27] LABS: Troponin I < 0.03 ng/mL (< 0.04)
[2021-10-22 22:45] LABS: Albumin 3.8 g/dL (3.5-5.7); Alkaline Phosphatase 66 Units/L (34-104); BUN/Creatinine Ratio 7 (6-26); Blood Urea Nitrogen 9 mg/dL (6-20); Calcium 9.2 mg/dL (8.6-10.3); Carbon Dioxide 22 mEq/L (23-29); Chloride 103 mEq/L (98-107); Glucose 85 mg/dL (70-105); Osmolality,Calculated 280 (280-300); Potassium 4.1 mEq/L (3.5-5.1); Sodium 136 mEq/L (136-145); eGFR For African Americans > 60 (> 60); eGFR For Non-African Americans 59 (> 60)
[2021-10-22] MEDS: Nitroglycerin 0.4 MG TAB.SUBL SL PRN ×3 (22:52→23:01)
[2021-10-23 00:16] LABS: Alanine Aminotransferase 8 Units/L (7-52); Aspartate Amino Transferase 15 Units/L (13-39); Bilirubin,Total 0.4 mg/dL (0.3-1.0)
[2021-10-23 00:40] LABS: Albumin/Globulin Ratio 1.2 (1.1-2.2); Bilirubin,Indirect 0.4 mg/dL (0.0-1.0); Globulin 3.2 g/dL (2.4-3.5); Lipase 44 Units/L (11-82)
[2021-10-23] MEDS ORDERED: *HR* HYDROcodone/Acet 5/325 mg TABLET PO PRN (01:40)
[2021-10-23] MEDS ORDERED: Acetaminophen 325 MG TABLET PO PRN (01:40)
[2021-10-23] MEDS ORDERED: Ondansetron ODT 4 MG TAB.RAPDIS SL PRN (01:40)
[2021-10-23] MEDS ORDERED: *HR* OxyCODONE Immed Rel 5 MG TABLET PO PRN (01:40)
[2021-10-23] MEDS ORDERED: Naloxone 0.4 MG/ML INJ IVP PRN (01:40)
[2021-10-23] MEDS ORDERED: Perflutren Lipid Microsphere 1.3 ML in 0.9 % Sodium Chloride 8.7 ML IVP PRN (01:42)
[2021-10-23] MEDS ORDERED: D5% in Water 1,000 ML IVC PRN (02:15)
[2021-10-23] MEDS ORDERED: *HR* Dextrose 50 % in Water (Syg) 50 ML SYRINGE IVP PRN (02:15)
[2021-10-23] MEDS ORDERED: Dextrose Gel 15 GM/37.5 ML TUBE PO PRN ×2 (02:15)
[2021-10-23 03:24] LABS: Hematocrit 42.1 % (37.5-50.1); Hemoglobin 13.4 g/dL (12.9-16.9); Mean Corpuscular HGB Conc 31.8 g/dL (31.6-35.5); Mean Corpuscular Hemoglobin 27.5 pg (28.0-33.3); Mean Corpuscular Volume 86.4 fL (83.0-100.0); Platelet Count 263 K/mcL (140-400); Red Blood Count 4.87 M/mcL (4.19-5.50); Red Cell Distribution Width 14.3 % (11.5-14.5); White Blood Count 6.6 K/mcL (4.3-11.1)
[2021-10-23 03:43] LABS: BUN/Creatinine Ratio 8 (6-26); Blood Urea Nitrogen 10 mg/dL (6-20); Calcium 8.9 mg/dL (8.6-10.3); Carbon Dioxide 31 mEq/L (23-29); Chloride 103 mEq/L (98-107); Chol/HDL Ratio 5.2 (0-4.9); Cholesterol 166 mg/dL (< 200); Glucose 89 mg/dL (70-105); HDL Cholesterol 32 mg/dL (40-59); LDL Cholesterol,Calculated 100 mg/dL (< 100); Magnesium 1.8 mg/dL (1.6-2.6); Osmolality,Calculated 285 (280-300); Phosphorous 4.5 mg/dL (2.7-4.5); Potassium 3.3 mEq/L (3.5-5.1); Sodium 138 mEq/L (136-145); Triglycerides 172 mg/dL (< 150); eGFR For African Americans > 60 (> 60); eGFR For Non-African Americans 58 (> 60)
[2021-10-23 03:55] LABS: Thyroid Stimulating Hormone 1.366 mcIU/mL (0.340-5.600)
[2021-10-23 03:59] LABS: Bilirubin,Urine Negative (Negative); Blood,Urine Negative (Negative); Clarity,Urine Clear (Clear); Color,Urine Colorless (Yellow); Glucose,Urine (UA) Normal (Normal); Ketones,Urine Negative (Negative); Leukocyte Esterase,Urine Negative (Negative); Nitrite,Urine Negative (Negative); PH,Urine 6.5 pH Units (5.0-8.0); Protein,Urine Negative (Neg-Trace); Specific Gravity,Urine 1.005 (1.010-1.025); Urobilinogen,Urine Normal (Normal)
[2021-10-23 04:09] LABS: Amphetamine Screen,Urine Negative ng/mL (Cutoff=1000); Barbiturate Screen,Urine Negative ng/mL (Cutoff=200); Benzodiazepines Screen,Urine Negative ng/mL (Cutoff=200); Cannabinoid Screen,Urine Negative ng/mL (Cutoff = 50); Cocaine Screen,Urine Negative ng/mL (Cutoff= 300); Opiate Screen,Urine Negative ng/mL (Cutoff=300); Phencyclidine Screen,Urine Negative ng/mL (Cutoff=25)
[2021-10-23] MEDS: Insulin LISPRO 300 UNITS/3 ML VIAL SUBQ SCH ×4 (06:08→23:38)
[2021-10-23] MEDS: Regadenoson 0.4 MG/5 ML SYRINGE IVP ONE ×2 (08:53→10:05)
[2021-10-23] MEDS ORDERED: amLODIPine 5 MG TABLET PO SCH (09:00)
[2021-10-23] MEDS ORDERED: carvediloL 25 MG TABLET PO SCH (09:00)
[2021-10-23] MEDS ORDERED: 0.9 % Sodium Chloride 1,000 ML IVC ONE (09:16)
[2021-10-23] MEDS ORDERED: 0.9 % Sodium Chloride 1,000 ML ONE (09:16)
[2021-10-23] MEDS ORDERED: Iopamidol - 370 500 ML MLS IVP ONE (09:56)
[2021-10-23] MEDS: 0.9 % Sodium Chloride 1,000 ML IVC SCH ×2 (10:25→21:24)
[2021-10-23 13:08] LABS: Estimated Average Glucose 105 mg/dl; Hemoglobin A1C 5.3 %
[2021-10-24] MEDS: Insulin LISPRO 300 UNITS/3 ML VIAL SUBQ SCH ×2 (05:57→11:33)
[2021-10-24] MEDS ORDERED: *HR* Enoxaparin 40 MG/0.4 ML SYRINGE SQ SCH (06:00)
[2021-10-24] MEDS: 0.9 % Sodium Chloride 1,000 ML IVC SCH (09:42)
[2021-10-24 10:37] VITALS: BP 134/79; PULSE 55; TEMP 98; O2SAT 97
[2021-10-24 12:49] LABS: Basophils % 0.3 %; Eosinophils # 0.1 K/mcL (0.0-0.6); Eosinophils % 0.8 %; Hematocrit 43.9 % (37.5-50.1); Hemoglobin 14.2 g/dL (12.9-16.9); Immature Granulocytes % 0.2 % (0-4); Lymphocytes # 1.1 K/mcL (0.6-4.6); Lymphocytes % 17.2 %; Mean Corpuscular HGB Conc 32.3 g/dL (31.6-35.5); Mean Corpuscular Hemoglobin 28.1 pg (28.0-33.3); Mean Corpuscular Volume 86.8 fL (83.0-100.0); Mean Platelet Volume 9.5 fL (9.4-12.4); Monocytes # 0.3 K/mcL (0.0-1.3); Monocytes % 4.4 %; Platelet Count 272 K/mcL (140-400); Red Blood Count 5.06 M/mcL (4.19-5.50); Red Cell Distribution Width 14.6 % (11.5-14.5); Segmented Neutrophils % 77.1 %; White Blood Count 6.5 K/mcL (4.3-11.1)
[2021-10-24 13:13] LABS: BUN/Creatinine Ratio 7 (6-26); Blood Urea Nitrogen 7 mg/dL (6-20); Calcium 8.8 mg/dL (8.6-10.3); Carbon Dioxide 25 mEq/L (23-29); Chloride 107 mEq/L (98-107); Glucose 78 mg/dL (70-105); Osmolality,Calculated 283 (280-300); Potassium 3.9 mEq/L (3.5-5.1); Sodium 138 mEq/L (136-145); eGFR For African Americans > 60 (> 60); eGFR For Non-African Americans > 60 (> 60)
== END 2021-10-24 14:19 | disposition left against medical advice (07) ==
LOC: 3BNU 21:20 → EMEROOARM 21:20 → SUATTDRO 10-23 01:38 → 3BNU 10-23 02:15
PROVIDERS: ADMIT Family Medicine; ATTEND Registered Nurse

== ENCOUNTER 2021-10-25 16:54 | Observation (INO) ==
[2021-10-25] MEDS: Nitroglycerin 0.4 MG TAB.SUBL SL SCH ×4 (17:39→21:30)
[2021-10-25 17:42] LABS: Basophils % 0.4 %; Eosinophils # 0.1 K/mcL (0.0-0.6); Eosinophils % 0.6 %; Hematocrit 44.5 % (37.5-50.1); Hemoglobin 14.7 g/dL (12.9-16.9); Immature Granulocytes % 0.3 % (0-4); Lymphocytes # 1.6 K/mcL (0.6-4.6); Lymphocytes % 20.6 %; Mean Corpuscular Hemoglobin 28.1 pg (28.0-33.3); Mean Corpuscular Volume 85.1 fL (83.0-100.0); Mean Platelet Volume 9.1 fL (9.4-12.4); Monocytes # 0.5 K/mcL (0.0-1.3); Monocytes % 6.3 %; Neutrophils # 5.6 K/mcL (1.6-8.9); Platelet Count 302 K/mcL (140-400); Red Blood Count 5.23 M/mcL (4.19-5.50); Red Cell Distribution Width 14.1 % (11.5-14.5); Segmented Neutrophils % 71.8 %; White Blood Count 7.8 K/mcL (4.3-11.1)
[2021-10-25 18:06] LABS: BUN/Creatinine Ratio 8 (6-26); Blood Urea Nitrogen 11 mg/dL (6-20); Calcium 9.8 mg/dL (8.6-10.3); Carbon Dioxide 29 mEq/L (23-29); Chloride 102 mEq/L (98-107); Glucose 90 mg/dL (70-105); Osmolality,Calculated 289 (280-300); Potassium 3.5 mEq/L (3.5-5.1); Sodium 140 mEq/L (136-145); Troponin I < 0.03 ng/mL (< 0.04); eGFR For African Americans > 60 (> 60); eGFR For Non-African Americans 58 (> 60)
[2021-10-25] MEDS ORDERED: Ondansetron 4 MG/2 ML VIAL IVP PRN (19:44)
[2021-10-25] MEDS ORDERED: Acetaminophen 325 MG TABLET PO PRN (19:44)
[2021-10-25] MEDS ORDERED: Naloxone 0.4 MG/ML INJ IVP PRN (19:44)
[2021-10-25] MEDS ORDERED: *HR* Labetalol 20 MG/4 ML SYRINGE IVP ONE (20:53)
[2021-10-25] MEDS: carvediloL 25 MG TABLET PO SCH (21:23)
[2021-10-25] MEDS: amLODIPine 5 MG TABLET PO SCH (21:23)
[2021-10-25 21:30] LABS: Bilirubin,Urine Negative (Negative); Blood,Urine Negative (Negative); Clarity,Urine Clear (Clear); Color,Urine Colorless (Yellow); Glucose,Urine (UA) Normal (Normal); Ketones,Urine Negative (Negative); Leukocyte Esterase,Urine Negative (Negative); Nitrite,Urine Negative (Negative); PH,Urine 7.5 pH Units (5.0-8.0); Protein,Urine Negative (Neg-Trace); Specific Gravity,Urine 1.006 (1.010-1.025); Urobilinogen,Urine Normal (Normal)
[2021-10-26 06:00] LABS: Basophils % 0.3 %; Eosinophils % 0.5 %; Hematocrit 43.8 % (37.5-50.1); Hemoglobin 14.1 g/dL (12.9-16.9); Immature Granulocytes % 0.2 % (0-4); Lymphocytes # 1.4 K/mcL (0.6-4.6); Lymphocytes % 21.8 %; Mean Corpuscular HGB Conc 32.2 g/dL (31.6-35.5); Mean Corpuscular Hemoglobin 27.9 pg (28.0-33.3); Mean Corpuscular Volume 86.6 fL (83.0-100.0); Mean Platelet Volume 9.6 fL (9.4-12.4); Monocytes # 0.4 K/mcL (0.0-1.3); Monocytes % 5.8 %; Neutrophils # 4.6 K/mcL (1.6-8.9); Platelet Count 288 K/mcL (140-400); Red Blood Count 5.06 M/mcL (4.19-5.50); Red Cell Distribution Width 14.4 % (11.5-14.5); Segmented Neutrophils % 71.4 %; White Blood Count 6.4 K/mcL (4.3-11.1)
[2021-10-26 06:09] LABS: INR 1.1
[2021-10-26 06:15] LABS: Albumin 3.8 g/dL (3.5-5.7); Albumin/Globulin Ratio 1.4 (1.1-2.2); BUN/Creatinine Ratio 11 (6-26); Bilirubin,Direct 0.1 mg/dL (0.0-0.2); Bilirubin,Indirect 0.5 mg/dL (0.0-1.0); Bilirubin,Total 0.6 mg/dL (0.3-1.0); Blood Urea Nitrogen 14 mg/dL (6-20); Calcium 9.3 mg/dL (8.6-10.3); Carbon Dioxide 25 mEq/L (23-29); Chloride 107 mEq/L (98-107); Globulin 2.8 g/dL (2.4-3.5); Glucose 100 mg/dL (70-105); Magnesium 1.8 mg/dL (1.6-2.6); Osmolality,Calculated 291 (280-300); Potassium 4.1 mEq/L (3.5-5.1); Sodium 140 mEq/L (136-145); Total Protein 6.6 g/dL (6.4-8.9); eGFR For African Americans > 60 (> 60); eGFR For Non-African Americans > 60 (> 60)
[2021-10-26] MEDS ORDERED: Regadenoson 0.4 MG/5 ML SYRINGE IVP ONE (06:27)
[2021-10-26] MEDS: amLODIPine 5 MG TABLET PO SCH (08:06)
[2021-10-26] MEDS: carvediloL 25 MG TABLET PO SCH (08:06)
[2021-10-27] MEDS: amLODIPine 5 MG TABLET PO SCH (09:26)
[2021-10-27 18:03] VITALS: BP 123/73; PULSE 44; TEMP 98; O2SAT 96
== END 2021-10-27 18:30 | disposition home or self-care (01) ==
LOC: 3NENU 16:54 → EMEROOARM 16:54 → SUATTDRO 20:02 → 3NENU 20:50
PROVIDERS: ADMIT Internal Medicine; ATTEND Nurse Practitioner